=== PATIENT | female | born 1980 | race Caucasian/White ===

== ENCOUNTER 2019-04-12 09:08 | Inpatient (IN) | payer MEDICARE, MEDICAID, SELFPAY ==
[2019-04-12] VITALS (24 sets, daily range): BP systolic 124–191; BP diastolic 77–116; PULSE 82–106; RESP 16–20; TEMP 36.6–37.2; O2SAT 68–100; BMI 26.4
--- NOTE | 2019-04-12 09:34 | ED_ITS ---
Entered by Divya Toure, acting as scribe for Ten Orona DO Apr 12, 2019 09:08 HPI - Skin/Abscess/Foreign Bdy General: Chief complaint: Skin/Abscess/Foreign Body Stated complaint: RASH Time Seen by Provider: 04/12/19 09:36 Source: patient and family Mode of arrival: ambulatory Limitations: no limitations History of Present Illness: HPI narrative: 38-year-old female presents emergency room with a systemic rash that is painful and burning states she is had it for the last 2 weeks. The only focal area she can think that it emanated from was a sore on the base of her skull just to the right of the midline where she has been picking at things. She denies any recent IV drug use injections or IV placements. She has had a fever at home. She is complaining of burning of her skin on arrival. She denies any vomiting or diarrhea but is nauseous. Denies dysuria urgency or frequency cough or shortness of breath MD complaint: rash Onset (ago): week(s) (1 week ago) Location: generalized Severity: severe Quality: burning and constant Pain Consistency: constant Relieving factors: none Exacerbating factors: none Associated symptoms: Reports chills and itching; Deny vomiting Treatments prior to arrival: none Review of Systems Const: Reports: chills Eyes: Denies: change in vision or blurry vision ENMT: Denies: throat pain, oral sores/lesions, dental pain, nasal discharge or nasal congestion Card: Denies: chest pain, palpitations, irregular heart rhythm, edema, syncope, shortness of breath on exertion, shortness of breath when lying down or leg pain with exertion Resp: Denies: shortness of breath, productive cough, non-productive cough or wheezing GI: Denies: vomiting, vomiting blood, coffee grounds in vomit, difficulty swallowing, heartburn/indigestion, diarrhea, constipation, cramping, blood in stool or black tarry stool : Denies: flank pain, painful urination, urinary frequency, urinary urgency, urinary incontinence or blood in urine Musc: Denies: neck pain, back pain, extremity pain, extremity swelling, joint pain or joint swelling Skin/Breast: Reports: rash, itching, redness, skin pain, skin tenderness, breast pain and breast skin changes Neuro: Denies: headache, numbness in extremities, weakness in extremities, changes in sensation, lack of coordination, difficulty walking, frequent falls, dizziness, vertigo or confusion Psych: Denies: anxiety, depression, loss of interest, visual hallucinations, auditory hallucinations, suicidal ideation or homicidal ideation Endo: Denies: excessive urination, excessive thirst, tired all the time or cold intolerance Juan M/Lymph: Denies: easy bruising, easy bleeding, petechiae or enlarged lymph nodes PFSH ED PFSH: Statuses (acute, chronic, etc) shown below reflect problem list status as previously entered and may not be historically accurate Medical History (Updated 04/13/19 @ 16:02 by Ten Orona DO) Hypothyroid (Acute) Social History Smoking and tobacco status: current every day smoker Physical Exam Const: COMMON NORMALS: average body habitus, oriented x3 and alert GENERAL APPEARANCE: cooperative, comfortable, well kempt and well developed NUTRITIONAL APPEARANCE: obese ORIENTATION/CONSCIOUSNESS: Yes awake, Yes oriented to person and Yes oriented to place HENMT: COMMON NORMALS: normocephalic, head/scalp atraumatic, EAC's normal, TM's normal bilaterally, external nose normal, moist oral mucous membranes and oropharynx normal HEAD & SCALP: normocephalic and atraumatic NOSE: external nose normal EXTERNAL AUDITORY CANAL: EAC's normal TYMPANIC MEMBRANE: TM's normal bilaterally MOUTH: oral and palatal mucosa normal, lip normal and tongue normal THROAT: posterior oropharynx normal and tonsils normal Eye: COMMON NORMALS: PERRL, EOMs intact bilaterally, conjunctivae normal and no scleral icterus CONJUNCTIVA: Yes conjunctivae normal PUPIL: Yes PERRL Neck/C-Spine: COMMON NORMALS: full ROM, no lymphadenopathy, supple, no meningeal signs and thyroid normal THYROID: thyroid normal and asymmetrical Lymph: LYMPHATIC: no lymphadenopathy noted Resp: COMMON NORMALS: normal respiratory effort, no retractions, no use of accessory muscles and clear to auscultation bilaterally AUSCULTATION: clear to auscultation bilaterally Cardio: COMMON NORMALS: regular rate and regular rhythm RATE: regular rate RHYTHM: regular rhythm HEART SOUNDS: no murmurs GI: COMMON NORMALS: normal to inspection, nondistended, normoactive bowel sounds, soft to palpation and no hepatosplenomegaly PALPATION: Yes soft and Yes no hepatosplenomegaly : COMMON NORMALS: Yes no CVA tenderness BLADDER/KIDNEY EXAM: Yes no CVA tenderness Back/Pelvis: COMMON NORMALS: no CVA tenderness LUMBAR SPINE/LOWER BACK: Yes normal to inspection Extremity: COMMON NORMALS: no clubbing, cyanosis or edema, no calf tenderness and no pedal edema Neuro: COMMON NORMALS: oriented x3 SENSORIUM/ORIENTATION: Yes alert, Yes oriented to person and Yes oriented to place MENINGEAL SIGNS: Yes no meningeal signs Psych: APPEARANCE: Yes well kempt Skin: GENERAL SKIN EXAM: erythema RASHES: rashes noted (redness and tenderness to entire body ) OTHER: Scattered at the base of the scalp approximately half to three-quarter inch irregular round shaped no abscess. No other identifiable abscess and back axilla groin or buttocks. Rash seems to be concentrated on the trunk but is present in all the extremities and face as well. Course ED course: [address] Ornelas he will admit the patient to observation for cellulitis continue IV antibiotics and antihistamines. Vital Signs: Vital signs: Vital Signs Temperature 98.6 F 04/13/19 12:52 Pulse Rate 67 04/13/19 12:52 Respiratory Rate 20 H 04/13/19 12:52 Blood Pressure 156/90 04/13/19 12:52 Pulse Oximetry 97 04/13/19 12:52 MDM - Skin/Abscess/Foreign Bdy Lab Data: Labs: Lab Results 04/12/19 04/12/19 04/12/19 Range/Units 01:45 10:00 10:00 WBC (4.0-10.0) 10^3/ uL RBC (4.1-5.3) 10^6/u L Hgb (11.5-15.3) g/dL Hct (37.0-47.0) % MCV (81-99) fL MCH (28.0-34.0) pg MCHC (30.0-36.0) g/dL RDW (12.1-15.1) % Plt Count (130-400) 10^3/c mm MPV (7.4-10.4) fL Neut % (Auto) % Lymph % (Auto) % Orange % (Auto) % Eos % (Auto) % Baso % (Auto) % Neut # (Auto) (1.8-7.7) 10^3/u L Lymph # (Auto) (0.8-4.8) 10^3/u L Orange # (Auto) (0.2-0.9) 10^3/u L Eos # (Auto) (0.0-0.8) 10^3/u L Baso # (Auto) (0.0-0.1) 10^3/u L Nucleated RBC % (a uto) % Nucleated RBCs # /100WBC ESR (0-15) mm/hr PT 12.50 (10.5-13.3) SECO NDS INR 0.91 (0.8-1.2) APTT 35.7 (23.9-36.7) SECO NDS Sodium (136-145) mmol/L Potassium (3.5-5.1) mmol/L Chloride (98-107) mmol/L Carbon Dioxide (22-29) mmol/L Anion Gap (5-19) BUN (6-20) mg/dL Creatinine (0.5-0.9) mg/dL GFR Calculation (90-130) mL/min Glucose (74-109) mg/dL Lactate 2.3 H (0.5-2.2) mmol/L Calcium (8.6-10.0) mg/Dl Total Bilirubin (0.15-1.2) mg/dL AST (0-32) U/L ALT (0-33) U/L Alkaline Phosphata se (35-105) IU/L C-Reactive Protein (0.0-4.9) mg/L Total Protein (6.6-8.7) g/dL Albumin (3.5-5.2) g/dL Globulin (1.3-4.6) g/dL TSH (0.27-4.20) uIU/ mL HCG, Qual (Negative) Urine Color (Yellow) Urine Appearance (CLEAR) Urine pH (5-7) Ur Specific Gravit y (1.005-1.030) Urine Protein (Negative) Urine Glucose (UA) (Normal) Urine Ketones (Negative) Urine Occult Blood (Negative) Urine Nitrate (Negative) Urine Bilirubin (NEGATIVE) Urine Urobilinogen (Negative) mg/dL Ur Leukocyte Britney ase (Negative) Urine Opiates Scre en (Negative) ng/mL Ur Barbiturates Sc reen (Negative) ng/mL Ur Phencyclidine S crn (Negative) ng/mL Ur Amphetamines Sc reen (Negative) ng/mL U Benzodiazepines Scrn (Negative) ng/mL Urine Cocaine Scre en (Negative) ng/mL U Marijuana (THC) Screen (Negative) ng/mL Ethyl Alcohol (0-10) mg/dL RENE-1 Antibody (<1.0 NEG) AI SS-A/Ro IgG Antibo dy (<1.0 NEG) AI SS-B/La IgG Antibo dy (<1.0 NEG) AI Anti-nRNP/Sm IgG A b (<1.0 NEG) AI Scl-70 Scleroderma Ab (<1.0 NEG) AI Anti-ds DNA IgG Ab IU/mL RPR Nonreactive (Nonreactive) 04/12/19 04/12/19 04/12/19 Range/Units 10:06 10:06 10:06 WBC 11.5 H (4.0-10.0) 10^3/ uL RBC 4.85 (4.1-5.3) 10^6/u L Hgb 15.4 H (11.5-15.3) g/dL Hct 48.2 H (37.0-47.0) % MCV 99.4 H (81-99) fL MCH 31.8 (28.0-34.0) pg MCHC 32.0 (30.0-36.0) g/dL RDW 14.0 (12.1-15.1) % Plt Count 387 (130-400) 10^3/c mm MPV 10.8 H (7.4-10.4) fL Neut % (Auto) 71.2 % Lymph % (Auto) 19.8 % Orange % (Auto) 5.1 % Eos % (Auto) 3.2 % Baso % (Auto) 0.3 % Neut # (Auto) 8.2 H (1.8-7.7) 10^3/u L Lymph # (Auto) 2.3 (0.8-4.8) 10^3/u L Orange # (Auto) 0.6 (0.2-0.9) 10^3/u L Eos # (Auto) 0.4 (0.0-0.8) 10^3/u L Baso # (Auto) 0.0 (0.0-0.1) 10^3/u L Nucleated RBC % (a uto) 0 % Nucleated RBCs # 0.0 /100WBC ESR (0-15) mm/hr PT (10.5-13.3) SECO NDS INR (0.8-1.2) APTT (23.9-36.7) SECO NDS Sodium 139 (136-145) mmol/L Potassium 3.8 (3.5-5.1) mmol/L Chloride 104 (98-107) mmol/L Carbon Dioxide 24 (22-29) mmol/L Anion Gap 14.8 (5-19) BUN 12 (6-20) mg/dL Creatinine 0.6 (0.5-0.9) mg/dL GFR Calculation 112.5 (90-130) mL/min Glucose 88 (74-109) mg/dL Lactate (0.5-2.2) mmol/L Calcium 9.6 (8.6-10.0) mg/Dl Total Bilirubin 0.2 (0.15-1.2) mg/dL AST 14 (0-32) U/L ALT 21 (0-33) U/L Alkaline Phosphata se 99 (35-105) IU/L C-Reactive Protein 2.0 (0.0-4.9) mg/L Total Protein 7.4 (6.6-8.7) g/dL Albumin 4.6 (3.5-5.2) g/dL Globulin 2.8 (1.3-4.6) g/dL TSH 1.10 (0.27-4.20) uIU/ mL HCG, Qual (Negative) Urine Color (Yellow) Urine Appearance (CLEAR) Urine pH (5-7) Ur Specific Gravit y (1.005-1.030) Urine Protein (Negative) Urine Glucose (UA) (Normal) Urine Ketones (Negative) Urine Occult Blood (Negative) Urine Nitrate (Negative) Urine Bilirubin (NEGATIVE) Urine Urobilinogen (Negative) mg/dL Ur Leukocyte Britney ase (Negative) Urine Opiates Scre en (Negative) ng/mL Ur Barbiturates Sc reen (Negative) ng/mL Ur Phencyclidine S crn (Negative) ng/mL Ur Amphetamines Sc reen (Negative) ng/mL U Benzodiazepines Scrn (Negative) ng/mL Urine Cocaine Scre en (Negative) ng/mL U Marijuana (THC) Screen (Negative) ng/mL Ethyl Alcohol < 10 (0-10) mg/dL RENE-1 Antibody (<1.0 NEG) AI SS-A/Ro IgG Antibo dy (<1.0 NEG) AI SS-B/La IgG Antibo dy (<1.0 NEG) AI Anti-nRNP/Sm IgG A b (<1.0 NEG) AI Scl-70 Scleroderma Ab (<1.0 NEG) AI Anti-ds DNA IgG Ab IU/mL RPR (Nonreactive) 04/12/19 04/12/19 04/12/19 Range/Units 10:06 10:06 11:02 WBC (4.0-10.0) 10^3/ uL RBC (4.1-5.3) 10^6/u L Hgb (11.5-15.3) g/dL Hct (37.0-47.0) % MCV (81-99) fL MCH (28.0-34.0) pg MCHC (30.0-36.0) g/dL RDW (12.1-15.1) % Plt Count (130-400) 10^3/c mm MPV (7.4-10.4) fL Neut % (Auto) % Lymph % (Auto) % Orange % (Auto) % Eos % (Auto) % Baso % (Auto) % Neut # (Auto) (1.8-7.7) 10^3/u L Lymph # (Auto) (0.8-4.8) 10^3/u L Orange # (Auto) (0.2-0.9) 10^3/u L Eos # (Auto) (0.0-0.8) 10^3/u L Baso # (Auto) (0.0-0.1) 10^3/u L Nucleated RBC % (a uto) % Nucleated RBCs # /100WBC ESR 15 (0-15) mm/hr PT (10.5-13.3) SECO NDS INR (0.8-1.2) APTT (23.9-36.7) SECO NDS Sodium (136-145) mmol/L Potassium (3.5-5.1) mmol/L Chloride (98-107) mmol/L Carbon Dioxide (22-29) mmol/L Anion Gap (5-19) BUN (6-20) mg/dL Creatinine (0.5-0.9) mg/dL GFR Calculation (90-130) mL/min Glucose (74-109) mg/dL Lactate (0.5-2.2) mmol/L Calcium (8.6-10.0) mg/Dl Total Bilirubin (0.15-1.2) mg/dL AST (0-32) U/L ALT (0-33) U/L Alkaline Phosphata se (35-105) IU/L C-Reactive Protein (0.0-4.9) mg/L Total Protein (6.6-8.7) g/dL Albumin (3.5-5.2) g/dL Globulin (1.3-4.6) g/dL TSH (0.27-4.20) uIU/ mL HCG, Qual Negative (Negative) Urine Color (Yellow) Urine Appearance (CLEAR) Urine pH (5-7) Ur Specific Gravit y (1.005-1.030) Urine Protein (Negative) Urine Glucose (UA) (Normal) Urine Ketones (Negative) Urine Occult Blood (Negative) Urine Nitrate (Negative) Urine Bilirubin (NEGATIVE) Urine Urobilinogen (Negative) mg/dL Ur Leukocyte Britney ase (Negative) Urine Opiates Scre en (Negative) ng/mL Ur Barbiturates Sc reen (Negative) ng/mL Ur Phencyclidine S crn (Negative) ng/mL Ur Amphetamines Sc reen (Negative) ng/mL U Benzodiazepines Scrn (Negative) ng/mL Urine Cocaine Scre en (Negative) ng/mL U Marijuana (THC) Screen (Negative) ng/mL Ethyl Alcohol (0-10) mg/dL RENE-1 Antibody <1.0 neg (<1.0 NEG) AI SS-A/Ro IgG Antibo dy <1.0 neg (<1.0 NEG) AI SS-B/La IgG Antibo dy <1.0 neg (<1.0 NEG) AI Anti-nRNP/Sm IgG A b <1.0 neg (<1.0 NEG) AI Scl-70 Scleroderma Ab <1.0 neg (<1.0 NEG) AI Anti-ds DNA IgG Ab 3 IU/mL RPR (Nonreactive) 04/12/19 04/12/19 Range/Units 11:02 11:02 WBC (4.0-10.0) 10^3/ uL RBC (4.1-5.3) 10^6/u L Hgb (11.5-15.3) g/dL Hct (37.0-47.0) % MCV (81-99) fL MCH (28.0-34.0) pg MCHC (30.0-36.0) g/dL RDW (12.1-15.1) % Plt Count (130-400) 10^3/c mm MPV (7.4-10.4) fL Neut % (Auto) % Lymph % (Auto) % Orange % (Auto) % Eos % (Auto) % Baso % (Auto) % Neut # (Auto) (1.8-7.7) 10^3/u L Lymph # (Auto) (0.8-4.8) 10^3/u L Orange # (Auto) (0.2-0.9) 10^3/u L Eos # (Auto) (0.0-0.8) 10^3/u L Baso # (Auto) (0.0-0.1) 10^3/u L Nucleated RBC % (a uto) % Nucleated RBCs # /100WBC ESR (0-15) mm/hr PT (10.5-13.3) SECO NDS INR (0.8-1.2) APTT (23.9-36.7) SECO NDS Sodium (136-145) mmol/L Potassium (3.5-5.1) mmol/L Chloride (98-107) mmol/L Carbon Dioxide (22-29) mmol/L Anion Gap (5-19) BUN (6-20) mg/dL Creatinine (0.5-0.9) mg/dL GFR Calculation (90-130) mL/min Glucose (74-109) mg/dL Lactate (0.5-2.2) mmol/L Calcium (8.6-10.0) mg/Dl Total Bilirubin (0.15-1.2) mg/dL AST (0-32) U/L ALT (0-33) U/L Alkaline Phosphata se (35-105) IU/L C-Reactive Protein (0.0-4.9) mg/L Total Protein (6.6-8.7) g/dL Albumin (3.5-5.2) g/dL Globulin (1.3-4.6) g/dL TSH (0.27-4.20) uIU/ mL HCG, Qual (Negative) Urine Color Straw (Yellow) Urine Appearance Clear (CLEAR) Urine pH 5.0 (5-7) Ur Specific Gravit y 1.010 (1.005-1.030) Urine Protein Neg (Negative) Urine Glucose (UA) Norm (Normal) Urine Ketones Negative (Negative) Urine Occult Blood Neg (Negative) Urine Nitrate Negative (Negative) Urine Bilirubin Neg (NEGATIVE) Urine Urobilinogen Norm (Negative) mg/dL Ur Leukocyte Britney ase Negative (Negative) Urine Opiates Scre en Positve (Negative) ng/mL Ur Barbiturates Sc reen Negative (Negative) ng/mL Ur Phencyclidine S crn Negative (Negative) ng/mL Ur Amphetamines Sc reen Positive H (Negative) ng/mL U Benzodiazepines Scrn Negative (Negative) ng/mL Urine Cocaine Scre en Negative (Negative) ng/mL U Marijuana (THC) Screen Positive H (Negative) ng/mL Ethyl Alcohol (0-10) mg/dL RENE-1 Antibody (<1.0 NEG) AI SS-A/Ro IgG Antibo dy (<1.0 NEG) AI SS-B/La IgG Antibo dy (<1.0 NEG) AI Anti-nRNP/Sm IgG A b (<1.0 NEG) AI Scl-70 Scleroderma Ab (<1.0 NEG) AI Anti-ds DNA IgG Ab IU/mL RPR (Nonreactive) Imaging Data^: CXR: Radiologist's impression: [address] [address] XRay Report Signed Patient: Perla Argueta #: [id number] : 1980Acct#:[id number] Age/Sex: 38 / FADM Date: 04/12/19 Loc: ERRoom/Bed: Attending Dr: Ordering Provider/Ordering MD: Ten Orona DO Date of Service: 04/12/19 Procedure(s): XR chest 1V portable [id number] Accession Number(s): [id number] Report Number: [id number] WS: [id number] PORTABLE CHEST HISTORY: fever, dyspnea COMPARISON: 10/02/2018 Lungs are clear and well expanded. No pleural effusion or pneumothorax. Cardiac size: Normal. Mediastinum/Aorta: Normal mediastinum. No osseous abnormality seen. XR/XR chest 1V portable [id number] IMPRESSION: Unremarkable portable chest. Dictated By:Delilah Patricio DO Signed By:Delilah Patricio DOSigned Date/Time:04/12/19 1024 DD/ 1024 Discharge Plan Discharge Patient Disposition: Admitted As Inpatient Admit Provider: Hemal Rocha Clinical Impression: Cellulitis, Hypothyroid, Eczema Condition: Stable Discharge Orders: Discharge Order (Routine); Ordered 04/13/19 Ordered By: Hemal Rocha Discharge Diet: Regular Discharge Activity: Resume usual activity Interventions: ED Discharge Assessment Last Done: 04/12/19 12:56 Discharge Date/Time: 04/12/19 13:33 Coding Level of Care Code ED Resource Center Teacher for Chg Fwd Exam Problem Focused The documentation recorded by the Mesfin cazares Bridget Annette, accurately reflects the service I personally performed and the decisions made by Adwoa english Curtis L, DO Apr 12, 2019 09:08
--- NOTE | 2019-04-12 09:40 | XR_ITS ---
WS: [id number] PORTABLE CHEST HISTORY: fever, dyspnea COMPARISON: 10/02/2018 Lungs are clear and well expanded. No pleural effusion or pneumothorax. Cardiac size: Normal. Mediastinum/Aorta: Normal mediastinum. No osseous abnormality seen. XR/XR chest 1V portable [id number] IMPRESSION: Unremarkable portable chest.
[2019-04-12 10:15] LABS: Basophils % 0.3 %; Eosinophils # 0.4 10^3/uL (0.0-0.8); Eosinophils % 3.2 %; Hematocrit 48.2 % (37.0-47.0); Hemoglobin 15.4 g/dL (11.5-15.3); Lymphocytes # 2.3 10^3/uL (0.8-4.8); Lymphocytes % 19.8 %; Mean Corpuscular Hemoglobin 31.8 pg (28.0-34.0); Mean Corpuscular Volume 99.4 fL (81-99); Mean Platelet Volume 10.8 fL (7.4-10.4); Monocytes # 0.6 10^3/uL (0.2-0.9); Monocytes % 5.1 %; Neutrophils # 8.2 10^3/uL (1.8-7.7); Neutrophils % 71.2 %; Nucleated Red Blood Cells % 0 %; Platelet Count 387 10^3/cmm (130-400); Red Blood Count 4.85 10^6/uL (4.1-5.3); White Blood Count 11.5 10^3/uL (4.0-10.0)
--- NOTE | 2019-04-12 10:15 | PC.NURSE ---
Xray performed at bedside
[2019-04-12 10:25] LABS: INR 0.91 (0.8-1.2); Lactate (Lactic Acid level) 2.3 mmol/L (0.5-2.2)
[2019-04-12 10:26] LABS: Partial Thromboplastin Time 35.7 SECONDS (23.9-36.7)
[2019-04-12] MEDS: morphine 4 mg/mL SDV 1 mL IVP (10:29)
[2019-04-12] MEDS: ondansetron 2 mg/ML SDV 2 mL 4 MG IVP (10:29)
[2019-04-12] MEDS: sodium chloride 0.9% 1,000 ML 999 ML IV (10:29)
[2019-04-12] MEDS: vancomycin 1,000 MG in sodium chloride 0.9% 250 ML 250 MG IV (10:34)
[2019-04-12] MEDS: diphenhydrAMINE 50 mg/mL SDV 1mL IVP (10:35)
[2019-04-12 10:36] LABS: Alanine Aminotransferase 21 U/L (0-33); Albumin Level 4.6 g/dL (3.5-5.2); Alkaline Phosphatase 99 IU/L (35-105); Anion Gap 14.8 (5-19); Aspartate Amino Transferase 14 U/L (0-32); Blood Urea Nitrogen 12 mg/dL (6-20); Calcium 9.6 mg/Dl (8.6-10.0); Carbon Dioxide 24 mmol/L (22-29); Chloride 104 mmol/L (98-107); Globulin 2.8 g/dL (1.3-4.6); Glomerular Filtration Rate 112.5 mL/min (90-130); Glucose 88 mg/dL (74-109); Potassium 3.8 mmol/L (3.5-5.1); Sodium 139 mmol/L (136-145); Total Bilirubin 0.2 mg/dL (0.15-1.2); Total Protein 7.4 g/dL (6.6-8.7)
[2019-04-12 11:13] LABS: HCG Qualitative Urine. Negative (Negative)
[2019-04-12 11:14] LABS: Add Urine Microscopic? NO
[2019-04-12 11:18] LABS: Bilirubin Urine Neg (NEGATIVE); Blood Urine Neg (Negative); Glucose Urine UA Norm (Normal); Ketones Urine Negative (Negative); Leukocyte Esterase Urine Negative (Negative); Nitrate Urine Negative (Negative); Protein Urine Neg (Negative); Urine Appearance Clear (CLEAR); Urine Color Straw (Yellow); Urobilinogen Urine Norm (Negative)
[2019-04-12] MEDS: LORazepam 2 mg/mL INJ 1 mL 1 MG IVP ×2 (11:26→18:16)
[2019-04-12 13:40] LABS: Barbiturates Screen Urine Negative (Negative); Benzodiazepines Screen Urine Negative (Negative); Cocaine Screen Urine Negative (Negative); PCP Screen Urine Negative (Negative); THC Screen Urine Positive (Negative)
[2019-04-12 13:53] LABS: Amphetamines Screen Urine Positive (Negative)
[2019-04-12] MEDS: morphine 4 mg/mL SDV 1 mL 1 MG IVP ×3 (14:00→23:26)
[2019-04-12] MEDS: diphenhydrAMINE 50 mg/mL SDV 1mL 12.5 MG IVP ×2 (14:00→18:17)
[2019-04-12] MEDS: D5-NS 0.45% + KCL 20 mEq 20 MEQ/1,000 ML BAG 125 MEQ IV ×2 (14:02→21:40)
[2019-04-12 14:23] LABS: Alcohol Level < 10 mg/dL (0-10)
[2019-04-12 14:39] LABS: Erythrocyte Sedimentation Rate 15 mm/hr (0-15)
[2019-04-12] MEDS: ipratropium-albuterol 3 mL Neb INHALATION ×2 (15:12→20:51)
--- NOTE | 2019-04-12 15:55 | P.HP_ITS ---
Providers/Chief Complaint Admitting Physician: Hemal Rocha MD Primary Care Provider: Alejandro Elam Chief Complaint: RASH History of Present Illness Perla Argueta is a 38 year old female with past medical history of recurrent rashes, hypertension, hypothyroidism presents to ER today complaining of generalized body rash. Patient states the rash started in both her of her arms almost a week ago and has been spreading rapidly to the present state. At present patient has rash all over her torso, both limbs, chest, neck with face involvement as well. Patient complains of extreme itching along with burning and mild pain as well. Patient states she has been using Benadryl orally for the rash but has not helped. 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 She states she has had similar rash on her breast around 6 months ago along with nipular discharge for which she has been worked up as an outpatient to rule out Paget's disease. At present patient denies of having any open wounds, any discharge from the rash except from the left nipple which has been similar in the past. Patient denies of having any recent travels, sick contacts, using any new detergent, using any new medication, being on any antibiotics recently, nausea, vomiting, flu or fever-like symptoms, dysuria, diarrhea but does complain of generalized body and joint pains. Patient denies of having any dysuria or bleeding in the urine. She denies of having any wheeze, difficulty in breathing, choking sensation, swelling in her legs. Review of Systems Const: Reports: malaise; Denies: fever, chills, body aches, change in appetite, night sweats, diaphoresis, change in sleep pattern, daytime sleepiness or snoring Eyes: Denies: change in vision, blurry vision, photophobia, eye discomfort or eye discharge ENMT: Denies: throat pain, enlarged tonsils, hoarseness, mouth pain, oral sores/lesions, dry mouth, tinnitus, nasal congestion or post nasal drip Card: Denies: chest pain, palpitations, irregular heart rhythm, edema, swelling of feet/ankles, lightheadedness, syncope, pre-syncope, shortness of breath on exertion, shortness of breath when lying down, leg pain with exertion or bluish discoloration of hands/feet Resp: Denies: shortness of breath, productive cough, non-productive cough, wheezing, stridor, pain on inspiration, change in phlegm color, coughing up blood or chest congestion GI: Denies: abdominal pain, nausea, vomiting, vomiting blood, coffee grounds in vomit, difficulty swallowing, heartburn/indigestion, diarrhea, constipation, bloating, cramping, change in bowel habits, painful bowel movements, blood in stool or black tarry stool : Denies: flank pain, painful urination, urinary frequency, urinary urgency, urinary hesitancy, nighttime urination or blood in urine Musc: Denies: neck pain, back pain, extremity pain, joint pain, joint swelling, redness, joint stiffness or limited range of motion Skin/Breast: Reports: rash, itching, redness, skin pain, skin tenderness, changes in skin color, stretch padilla and nipple discharge; Denies: sensitivity to light, breast mass/lump, breast skin changes or change in breast shape Neuro: Denies: headache, numbness in extremities, weakness in extremities, changes in sensation, lack of coordination, difficulty walking, frequent falls, dizziness, vertigo, confusion, slurred speech, difficulty communicating thoughts or seizure-like activity Psych: Denies: anxiety, depression, mood swings, panic attacks, hopelessness or irritability Endo: Denies: excessive urination, excessive thirst, tired all the time, cold intolerance, excessive sweating, flushing or heat intolerance Juan M/Lymph: Denies: easy bruising or easy bleeding All/Imm: Denies: tongue swelling, facial swelling or acute wheezing Medications/Allergies Home Medications Medication Instructions Recorded Confirmed Last Taken Type Probiotic 3 cap PO DAILY 04/12/19 04/12/19 04/11/19 History diphenhydramine HCl [Benadryl] 25 mg PO TID PRN 04/12/19 04/12/19 04/12/19 History ibuprofen 400 mg PO Q4H PRN 04/12/19 04/12/19 04/12/19 History levothyroxine 50 mcg PO DAILY 04/12/19 04/12/19 Unknown History losartan 100 mg PO DAILY 04/12/19 04/12/19 Unknown History Allergies Allergy/AdvReac Type Severity Reaction Status Date / Time codeine Allergy ADR-Headach Verified 01/23/20 09:17 e PFSH Acute PFSH: Statuses (acute, chronic, etc) shown below reflect problem list status as previously entered and may not be historically accurate Medical History (Updated 04/12/19 @ 16:01 by Hemal Rocha MD) Hypothyroid (Acute) Social History Smoking and tobacco status: current every day smoker Vitals/I&O/Wt Last Vital Signs Temp 98.7 F 04/12/19 13:39 Pulse 100 04/12/19 15:14 Resp 18 04/12/19 15:14 BP 164/113 04/12/19 13:39 Pulse Ox 97 04/12/19 15:14 04/12/19 04/12/19 04/12/19 06:59 14:59 22:59 Intake Total 1250 / 1250 Balance 1250 / 1250 Weight last 48 hrs Weight 86.183 kg Physical Exam Narrative: EXAM NARRATIVE: General: No acute distress, AO x3 HEENT: PERRLA, pupils bilaterally equal and reactive Chest: Normal vesicular breath sounds, no added sounds, equal good air entry bilaterally CVS: S1-S2 regular, no murmurs, no tachycardia, no gallops, no rubs Abdomen: Soft, nontender, no organomegaly, bowel sounds present Neuro: No focal deficits, no facial deformity, AO x3, power 5/5 in all limbs Skin: RASHES: rashes noted (Generalized, red, angry looking rash present on both her upper limbs, chest, abdomen without any pustules or papillary lesion. No ulcers present on any of the rash except from the left breast. Mild scaling present on the right arm.) WOUNDS: No wounds noted Data : 04/12/19 10:06 04/12/19 10:06 Micro: Microbiology 04/12/19 10:06 Blood Culture - Preliminary Blood SPECIMEN COLLECTED 04/12/19 10:00 Blood Culture - Preliminary Blood SPECIMEN COLLECTED A&P Assessment and plan (1) Skin rash: Status: Acute Code(s): R21 - Rash and other nonspecific skin eruption (2) Hypothyroid: Status: Acute Code(s): E03.9 - Hypothyroidism, unspecified Additional A&P Information Generalized rash: Unknown etiology. Cellulitis unlikely given the generalized spread all over the body. We will hold off on vancomycin for now. Could be secondary to flea or bug bite exposure or exposure to the spray from the motel. Check ESR, CRP, tick panel, [facility] ALEXIA panel. Given the joint pains will also rule out gonorrhea and chlamydia infections along with secondary syphilis with RPR. We will try to arrange for a skin biopsy. We will start patient on doxycycline for possible tick exposure. We will start patient on Benadryl IV 12.5 every 6 hourly as needed along with Ativan 0.5 mg q. 8 hourly as needed. Restart patient's her DuoNeb's every 6 hourly and budesonide twice daily. Respiratory to assess and treat. After skin biopsy at the rash continues to remain like this can add on steroids with Solu-Medrol 40 mg every 6 hourly. Hypothyroidism: Check TSH. Continue home dose of levothyroxine. Full code Regular diet But was score low so we will hold off on any pharmacological DVT prophylaxis right now. Cannot do mechanical prophylaxis in view of painful rash. Attestations Medical Necessity Statement*: Most likely admission for less than 48 hours. Patient needs admission for generalized rash. Time Spent in Patient Care: 16 - 35 minutes Coding Level of Care Code Acute Counter Sales Representative for Chg Fwd Diagnoses Skin rash R21 Hypothyroid E03.9
[2019-04-12] MEDS: doxycycline 100 mg Tablet PO (16:54)
[2019-04-13 02:10] LABS: Basophils % 0.1 %; Eosinophils % 0.1 %; Hematocrit 43.5 % (37.0-47.0); Hemoglobin 13.5 g/dL (11.5-15.3); Lymphocytes # 0.6 10^3/uL (0.8-4.8); Lymphocytes % 5.1 %; Mean Corpuscular Volume 96.7 fL (81-99); Mean Platelet Volume 11.3 fL (7.4-10.4); Monocytes # 0.1 10^3/uL (0.2-0.9); Monocytes % 0.5 %; Neutrophils % 93.9 %; Nucleated Red Blood Cells % 0 %; Platelet Count 317 10^3/cmm (130-400); White Blood Count 11.7 10^3/uL (4.0-10.0)
[2019-04-13 02:17] LABS: Alanine Aminotransferase 19 U/L (0-33); Albumin Level 3.8 g/dL (3.5-5.2); Alkaline Phosphatase 76 IU/L (35-105); Anion Gap 15.6 (5-19); Blood Urea Nitrogen 9 mg/dL (6-20); Calcium 9.1 mg/dL (8.5-10.5); Carbon Dioxide 19 mmol/L (22-29); Chloride 102 mmol/L (98-107); Globulin 2.3 g/dL (1.3-4.6); Glomerular Filtration Rate 112.5 mL/min (90-130); Glucose 179 mg/dL (74-109); Potassium 4.6 mmol/L (3.5-5.1); Sodium 132 mmol/L (136-145); Total Bilirubin 0.2 mg/dL (0.15-1.2); Total Protein 6.1 g/dL (6.6-8.7)
[2019-04-13 02:22] LABS: Aspartate Amino Transferase 15 U/L (0-32)
[2019-04-13 02:23] LABS: Slide Review Slide Review Perform
[2019-04-13 04:00] VITALS: BP 124/69; PULSE 89; RESP 19; TEMP 36.3; O2SAT 97
[2019-04-13 04:38] LABS: Rapid Plasma Reagin Syphilis Nonreactive (Nonreactive)
[2019-04-13] MEDS: D5-NS 0.45% + KCL 20 mEq 20 MEQ/1,000 ML BAG 125 MEQ IV (05:23)
[2019-04-13 07:49] VITALS: BP 145/76; PULSE 98; RESP 20; TEMP 36.6; O2SAT 98
[2019-04-13] MEDS: doxycycline 100 mg Tablet PO (08:48)
[2019-04-13] MEDS: levothyroxine 50 mcg Tablet PO (08:48)
[2019-04-13 09:17] VITALS: PULSE 114; RESP 18; O2SAT 100
[2019-04-13 09:21] VITALS: RESP 22
[2019-04-13] MEDS: morphine 4 mg/mL SDV 1 mL 1 MG IVP (09:21)
[2019-04-13 11:06] LABS: Anti-Double Strand DNA AB 3 IU/mL; Jo-1 Antibody <1.0 NEG AI (<1.0 NEG); SM/RNP Antibodies <1.0 NEG AI (<1.0 NEG); SS-B/LA IGG <1.0 NEG AI (<1.0 NEG); Scleroderma Ab(Scl-70) Ab <1.0 NEG AI (<1.0 NEG); Ss-A/Ro Igg <1.0 NEG AI (<1.0 NEG)
[2019-04-13 12:00] VITALS: BP 156/90; PULSE 67; RESP 20; TEMP 37; O2SAT 97
--- NOTE | 2019-04-13 12:03 | PM.DCS ---
Discharge Providers Date of Admission: 04/12/19 12:17 Date of Discharge: 04/13/19 Attending Provider at Admission: Hemal Rocha MD Attending Provider at Discharge: Hemal Rocha MD Primary Care Provider: Alejandro Elam Diagnoses at Discharge Discharge Diagnosis (1) Skin rash: Status: Acute (2) Hypothyroid: Status: Acute Reason for Visit Reason for Visit: Reason For Visit: RASH Hospital Course Discharge Summary: Perla Argueta is a 38 year old female with past medical history of recurrent rashes, hypertension, hypothyroidism presented to the ER on March 23 complaining of generalized body rash. Patient states the rash started in both her of her arms almost a week ago and has been spreading rapidly to the present state. At present patient has rash all over her torso, both limbs, chest, neck with face involvement as well. Patient complains of extreme itching along with burning and mild pain as well. 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 Patient has had similar rash in the past. As rash etiology was not clear so we will follow-up blood work was done. Patient's ALEXIA profile is negative with a normal ESR and CRP. Patient's U tox was positive for opiates, meth, marijuana. Patient's HIV and Chlamydia gonorrhea could not be done as patient refused. Given the exposure to possible bedbugs and fleas patient was started on doxycycline and IV steroids along with Benadryl for itching. Patient responded well to the treatment and rash started to improve. Patient is being discharged on oral doxycycline for 1 week and steroids for 1 week as well to follow-up with neurosurgery spine physician for skin biopsy for further evaluation. Patient was advised and counseled regarding amphetamines abuse to which patient stated she does not do the drugs and is possible that 1 of her friends is slipping the the drugs to her. Patient denies of having suicidal or homicidal ideation and stated that she feels safe at her home and is not physically or mentally abused. Physical Exam Narrative: EXAM NARRATIVE: General: No acute distress, AO x3 HEENT: PERRLA, pupils bilaterally equal and reactive Chest: Normal vesicular breath sounds, no added sounds, equal good air entry bilaterally CVS: S1-S2 regular, no murmurs, no tachycardia, no gallops, no rubs Abdomen: Soft, nontender, no organomegaly, bowel sounds present Neuro: No focal deficits, no facial deformity, AO x3, power 5/5 in all limbs Skin: RASHES: rashes noted (Generalized, red, angry looking rash present on both her upper limbs, chest, abdomen without any pustules or papillary lesion. No ulcers present on any of the rash except from the left breast. Mild scaling present on the right arm.) WOUNDS: No wounds noted WOUNDS: No wounds noted Discharge Data Data Completed and Pending: Completed Studies During Hospitalization Category Date Time Status XR chest 1V valentín ble [id number] Urgent Exams 04/12/19 09:40 Completed Pending at discharge Category Date Time Status Blood Culture Sta t Lab 04/12/19 10:06 Results Chlamydia / Gonor idalia Panel Routine Lab 04/12/19 22:33 Uncollected Complete Blood Co unt w/Auto AM LABS Lab 04/14/19 04:00 Ordered Complete Blood Co unt w/Auto AM LABS Lab 04/15/19 04:00 Ordered Comprehensive Met abolic Panel AM LA BS Lab 04/14/19 04:00 Ordered Comprehensive Met abolic Panel AM LA BS Lab 04/15/19 04:00 Ordered Streptococcus Cul ture Group A Routi ne Lab 04/12/19 14:10 Results Tick Panel Routin e Lab 04/12/19 16:14 Received Labs from last 24 hours 04/13/19 04/13/19 04/12/19 01:45 01:45 11:02 WBC 11.7 H RBC 4.50 Hgb 13.5 Hct 43.5 MCV 96.7 MCH 30.0 MCHC 31.0 RDW 14.0 Plt Count 317 MPV 11.3 H Neut % (Auto) 93.9 Lymph % (Auto) 5.1 [place] % (Auto) 0.5 Eos % (Auto) 0.1 Baso % (Auto) 0.1 Neut # (Auto) 11.0 H Lymph # (Auto) 0.6 L [place] # (Auto) 0.1 L Eos # (Auto) 0.0 Baso # (Auto) 0.0 Nucleated RBC % (a uto) 0 Nucleated RBCs # 0.0 ESR Sodium 132 L Potassium 4.6 Chloride 102 Carbon Dioxide 19 L Anion Gap 15.6 BUN 9 Creatinine 0.6 GFR Calculation 112.5 Glucose 179 H Calcium 9.1 Total Bilirubin 0.2 AST 15 ALT 19 Alkaline Phosphata se 76 C-Reactive Protein Total Protein 6.1 L Albumin 3.8 Globulin 2.3 TSH Urine Opiates Scre en Positve Ur Barbiturates Sc reen Negative Ur Phencyclidine S crn Negative Ur Amphetamines Sc reen Positive H U Benzodiazepines Scrn Negative Urine Cocaine Scre en Negative U Marijuana (THC) Screen Positive H Ethyl Alcohol RENE-1 Antibody SS-A/Ro IgG Antibo dy SS-B/La IgG Antibo dy Anti-nRNP/Sm IgG A b Scl-70 Scleroderma Ab Anti-ds DNA IgG Ab RPR 04/12/19 04/12/19 04/12/19 10:06 10:06 10:06 WBC RBC Hgb Hct MCV MCH MCHC RDW Plt Count MPV Neut % (Auto) Lymph % (Auto) [place] % (Auto) Eos % (Auto) Baso % (Auto) Neut # (Auto) Lymph # (Auto) [place] # (Auto) Eos # (Auto) Baso # (Auto) Nucleated RBC % (a uto) Nucleated RBCs # ESR 15 Sodium Potassium Chloride Carbon Dioxide Anion Gap BUN Creatinine GFR Calculation Glucose Calcium Total Bilirubin AST ALT Alkaline Phosphata se C-Reactive Protein 2.0 Total Protein Albumin Globulin TSH 1.10 Urine Opiates Scre en Ur Barbiturates Sc reen Ur Phencyclidine S crn Ur Amphetamines Sc reen U Benzodiazepines Scrn Urine Cocaine Scre en U Marijuana (THC) Screen Ethyl Alcohol < 10 RENE-1 Antibody <1.0 neg SS-A/Ro IgG Antibo dy <1.0 neg SS-B/La IgG Antibo dy <1.0 neg Anti-nRNP/Sm IgG A b <1.0 neg Scl-70 Scleroderma Ab <1.0 neg Anti-ds DNA IgG Ab 3 RPR 04/12/19 01:45 WBC RBC Hgb Hct MCV MCH MCHC RDW Plt Count MPV Neut % (Auto) Lymph % (Auto) [place] % (Auto) Eos % (Auto) Baso % (Auto) Neut # (Auto) Lymph # (Auto) [place] # (Auto) Eos # (Auto) Baso # (Auto) Nucleated RBC % (a uto) Nucleated RBCs # ESR Sodium Potassium Chloride Carbon Dioxide Anion Gap BUN Creatinine GFR Calculation Glucose Calcium Total Bilirubin AST ALT Alkaline Phosphata se C-Reactive Protein Total Protein Albumin Globulin TSH Urine Opiates Scre en Ur Barbiturates Sc reen Ur Phencyclidine S crn Ur Amphetamines Sc reen U Benzodiazepines Scrn Urine Cocaine Scre en U Marijuana (THC) Screen Ethyl Alcohol RENE-1 Antibody SS-A/Ro IgG Antibo dy SS-B/La IgG Antibo dy Anti-nRNP/Sm IgG A b Scl-70 Scleroderma Ab Anti-ds DNA IgG Ab RPR Nonreactive Vitals: Last Vital Signs Temp 97.9 F 04/13/19 07:49 Pulse 114 H 04/13/19 09:17 Resp 22 H 04/13/19 09:21 BP 145/76 04/13/19 07:49 Pulse Ox 100 04/13/19 09:17 Discharge Plan Discharge Patient Disposition: Home, Self-Care Condition: Stable Prescriptions: New doxycycline monohydrate 100 mg Tablet 100 mg PO BID Qty: 14 RF: 0 prednisone 20 mg tablet 20 mg PO DAILY 11 Days Qty: 11 RF: 0 Continued levothyroxine 50 mcg Tablet 50 mcg PO DAILY RF: 0 Benadryl 25 mg Capsule 25 mg PO TID PRN (Reason: Itching) RF: 0 ibuprofen 200 mg Tablet 400 mg PO Q4H PRN (Reason: Pain) RF: 0 Probiotic 3 cap PO DAILY RF: 0 Discontinued losartan 100 mg Tablet 100 mg PO DAILY RF: 0 Discharge Orders: Discharge Order (Routine); Ordered 04/13/19 Ordered By: Hemal Rocha Referrals: Alejandro Elam [Primary Care Provider] - 4-7 days (Please see Dr. Elam's office on TuesdayApr 18 at 2:00) Discharge Diet: Regular Discharge Activity: Resume usual activity Patient Instructions: Doxycycline (By mouth), Prednisone (By mouth) Activity Restrictions/Additional Instructions: Follow-up with your neurosurgery spine physician for skin biopsy in a week. Discharge Date/Time: 04/13/19 13:15 Discharge Attestations Time Spent in Discharge Care*: greater than 30 min Specific Discharge Activities: Specific discharge activities: educating patient and discussing with spring encaser/social workers/dc planners Status at Discharge: Cognitive status at discharge: cognitively intact, Behavioral status at discharge: cooperative, Functional status at discharge: independent ambulation Overall status at discharge: patient is progressing back to baseline Quality Metrics Clinical Quality Measures During this hospital stay, did patient experience: None Coding Level of Care Code Acute Wire Drawing Machine Tender for Chg Fwd Diagnoses Skin rash R21 Hypothyroid E03.9
[2019-04-13 12:52] VITALS: BP 156/90; PULSE 67; RESP 20; TEMP 37; O2SAT 97
--- NOTE | 2019-04-13 13:07 | PC.CHAP ---
Pastoral Care Encounter/Spiritual Assessment Type of Contact [] Declined sorting grapple operator visit [] Patient/Family/Request visit [] Outpatient visit [] Follow-up visit [] Physician referral [] Code/Alert [x] Routine visit [] Staff referral [] Actively dying [] Patient sleeping [] Family support [] [] Out of room [] Palliative care [] [] Receiving care in room [] Pre-surgical visit [] Trauma [] Long length of stay [] ICU visit [] Other: Relational/Emotional Strength [x] Patient feels connected with others/family/visitors/staff [] Distress [] Loneliness/isolation [] Abandonment Spirituality of Patient [] Person of Jyotsna [] Attends Islam of their Jyotsna [] Believes in Prayer [] Reads Bible or Restorationist materials [x] There are Spiritual issues to be addressed Graphic Art Technician Interventions [x] Prayer [x] Active listening [x] Non-anxious presence [x] Spiritual/emotional support [] Crisis/trauma care [] Spiritual counseling [] Bereavement support [] Provided bereavement packet [] Provided Bible/devotional materials [] Provided toy/stuffed animal, coloring book to patient or family member [] Completed spiritual assessment [] Provided Communion [] Anointing/Palisade [] Salvation [] Other: Impact on Illness or Injury [] Angry [] Fearful [] Anxious [] Often cries [] Exhaustion [] Unable to work [] Unable to attend advent [] Unable to walk/stand [] Unable to read [] Unable to drive [] Unable to eat/drink [] Unable to sleep [] Unable to be with family [x] Other: Summary Patient had her boyfriend in the room with her and wanted minimal visit with Jennyfer and allowed prayer. Time spent with patient 2-minutes
== END 2019-04-13 13:15 | disposition home or self-care (01) | DRG 607 ==
LOC: ER 12:57 → MEDSURG 13:01
PROVIDERS: Admitting Provider Student in an Organized Health Care Education/Training Program; Emergency Provider Family Medicine; PCP Family Medicine; Visit Provider Student in an Organized Health Care Education/Training Program
DX: R21 Rash and other nonspecific skin eruption (principal); E03.9 Hypothyroidism, unspecified; L30.9 Dermatitis, unspecified; I10 Essential (primary) hypertension; Z79.890 Hormone replacement therapy; Z79.899 Other long term (current) drug therapy; Z79.1 Long term (current) use of non-steroidal anti-inflammatories (NSAID); F17.200 Nicotine dependence, unspecified, uncomplicated; Z88.5 Allergy status to narcotic agent
CPT/HCPCS: 12345; 36415; 71045; 80053; 80307; 81003; 81025; 83605; 84443; 85025; 85610; 85651; 85730; 86140; 86225; 86235; 86592; 86618; 86666; 86757; 87040; 87081; 94640; 94664; 96365; 96366; 96374; 96375; 99283; A9270; G0378; J1200; J2060; J2270; J2405; J2920; J3370; J7030; J7050

== ENCOUNTER 2019-08-26 18:42 | Emergency (ER) | payer MEDICARE, MEDICAID, SELFPAY ==
[2019-08-26 18:49] VITALS: BP 154/99; PULSE 88; RESP 18; TEMP 36.6; O2SAT 98; BMI 26.4
--- NOTE | 2019-08-26 19:03 | XR_ITS ---
WS: [id number] PORTABLE CHEST HISTORY: cp COMPARISON: 04/12/2019 Lungs are clear and well expanded. No pleural effusion or pneumothorax. Cardiac size: Normal. Mediastinum/Aorta: Normal mediastinum. No osseous abnormality seen. XR/XR chest 1V portable [id number] IMPRESSION: Unremarkable portable chest.
--- NOTE | 2019-08-26 19:03 | ECG_ITS ---
Measurements Intervals [place] Rate: 82 P: 29 IN: 116 QRS: -30 QRSD: 98 T: 79 QT: 384 QTc: 450 SINUS RHYTHM WITH SHORT IN INTERVAL POSSIBLE LEFT ATRIAL ENLARGEMENT [-0.1mV P WAVE IN V1/V2] POSSIBLE ANTERIOR MYOCARDIAL INFARCTION [30 ms Q WAVE IN V3/V4, OR R < 0.2 mV IN V4], OF INDETERMINATE AGE Compared to ECG 10/01/2018 22:41:18 Short IN interval now present Myocardial infarct finding still present Electronically Signed On 08-27-2019 19:27:39 CDT by Aric Maguire M.D. [email or web address]
--- NOTE | 2019-08-26 19:05 | CTR_ITS ---
PROCEDURE INFORMATION: Exam: CT Head Without Contrast Exam date and time: 08/26/2019 7:21 PM Age: 38 years old Clinical indication: Pain; Headache not specified; Patient HX: C/O DAMIAN w nausea TECHNIQUE: Imaging protocol: Computed tomography of the head without contrast. Radiation optimization: All CT scans at this facility use at least one of these dose optimization techniques: automated exposure control; mA and/or kV adjustment per patient size (includes targeted exams where dose is matched to clinical indication); or iterative reconstruction. COMPARISON: CT head wo con* [id number] 06/15/2018 4:11 PM RADIATION DOSE METRICS: Total DLP: 762.43 mGy-cm FINDINGS: The ventricles, sulci and basilar cisterns appear normal for the patient's stated age. There is no evidence of mass, hemorrhage or infarct. No extra-axial fluid collections are identified. There is no midline shift. There is no evidence of fracture. The visualized paranasal sinuses are well-aerated. CT/CT head wo con* [id number] IMPRESSION: No evidence for acute infarct, mass or hemorrhage. Radiation Dose CTDIVOL = (mGy): DLP = 762.43 (mGy-cm)
--- NOTE | 2019-08-26 19:08 | W.ED.CHESTPA ---
HPI - Chest Pain General: Chief Complaint: Chest Pain Stated Complaint: cp, sob,damian Time Seen by Provider: 08/26/19 19:02 Source: patient Mode of arrival: ambulatory Limitations: no limitations History of Present Illness: HPI narrative: 38-year-old female who states she had a headache over the last 2 days. She states she has a long history of migraines and this feels like her typical migraine. She states she does have light sensitivity. She states she is also had some chest pain in her left chest for the last 2 days and slight dyspnea. She denies any worsening or improving factors for her pain or shortness of breath. She denies any fever or cough. Associated symptoms: Deny abdominal pain, dyspnea, fever(s), nausea or vomiting Review of Systems Const: Denies: fever(s), chills, body aches or change in appetite Eyes: Denies: blurry vision or eye discomfort ENMT: Denies: throat pain or dental pain Card: Reports: chest pain Resp: Denies: dyspnea GI: Denies: abdominal pain, nausea, vomiting or diarrhea : Denies: dysuria Musc: Denies: neck pain or back pain Skin/Breast: Denies: rash Neuro: Reports: headache(s) Psych: Denies: depression Juan M/Lymph: Denies: easy bruising All/Imm: Denies: urticaria PFSH ED PFSH: Medical History (Updated 08/26/19 @ 20:08 by Keturah Taveras MD) Hypothyroid Social History Smoking and tobacco status: current every day smoker Physical Exam Const: COMMON NORMALS: no acute distress, patient oriented x3 and healthy appearing HENMT: COMMON NORMALS: normocephalic and atraumatic HEAD & SCALP: normocephalic and atraumatic Eye: COMMON NORMALS: Equal, round and reactive pupils present and EOMs intact bilaterally PUPIL: Yes Equal, round and reactive pupils present Neck/C-Spine: COMMON NORMALS: full ROM and supple Chest: COMMONS NORMALS: normal inspection of the chest and normal palpation of entire chest wall Resp: COMMON NORMALS: normal respiratory effort, No retractions, No use of accessory muscles and clear to auscultation bilaterally AUSCULTATION: clear to auscultation bilaterally Cardio: COMMON NORMALS: regular rate, regular rhythm and No murmurs present (Cardio) RATE: regular rate RHYTHM: regular rhythm GI: COMMON NORMALS: Normal to inspection, nondistended, normoactive bowel sounds present, Soft to palpation, non-tender and no masses PALPATION: Yes Soft to palpation Extremity: COMMON NORMALS: normal to inspection and full ROM Neuro: COMMON NORMALS: patient oriented x3, moves all extremities and no focal motor deficits Psych: COMMON NORMALS: mental status grossly normal, Normal thought process present and cooperative THOUGHT PROCESS: Normal thought process present Skin: COMMON NORMALS: no rashes or lesions noted and no wounds GENERAL SKIN EXAM: no rashes or lesions noted Course Vital Signs: Vital signs: Vital Signs Temperature 97.9 F 08/26/19 18:49 Pulse Rate 87 08/26/19 20:32 Respiratory Rate 20 H 08/26/19 20:32 Blood Pressure 140/87 08/26/19 20:32 Pulse Oximetry 98 08/26/19 20:32 MDM - Chest Pain MDM Narrative: Medical decision making narrative: Perla presents here with migraine headache along with atypical chest pain. Patient's CT head and EKG and blood work are all normal. Patient is well-appearing here and is stable for discharge. She states her symptoms resolved after Reglan and Benadryl. She has no signs of pulmonary embolism. Patient is stable for discharge and return if worsening. Lab Data: Labs: Lab Results 08/26/19 08/26/19 08/26/19 Range/Units 19:20 19:20 19:20 WBC 13.4 H (4.0-10.0) 10^3/ uL RBC 4.37 (4.1-5.3) 10^6/u L Hgb 13.8 (11.5-15.3) g/dL Hct 42.6 (37.0-47.0) % MCV 97.5 (81-99) fL MCH 31.6 (28.0-34.0) pg MCHC 32.4 (30.0-36.0) g/dL RDW 13.3 (12.1-15.1) % Plt Count 304 (130-400) 10^3/c mm MPV 11.2 H (7.4-10.4) fL Neut % (Auto) 64.3 % Lymph % (Auto) 27.3 % [place] % (Auto) 5.6 % Eos % (Auto) 2.0 % Baso % (Auto) 0.4 % Neut # (Auto) 8.6 H (1.8-7.7) 10^3/u L Lymph # (Auto) 3.7 (0.8-4.8) 10^3/u L [place] # (Auto) 0.8 (0.2-0.9) 10^3/u L Eos # (Auto) 0.3 (0.0-0.8) 10^3/u L Baso # (Auto) 0.1 (0.0-0.1) 10^3/u L Nucleated RBC % (a uto) 0 % Nucleated RBCs # 0.0 /100WBC PT 11.60 (10.5-13.3) SECO NDS INR 0.82 (0.8-1.2) APTT 32.3 (23.9-36.7) SECO NDS D-Dimer <= 0.27 (0-0.59) ug/mIFE U Sodium 140 (136-145) mmol/L Potassium 3.4 L (3.5-5.1) mmol/L Chloride 103 (98-107) mmol/L Carbon Dioxide 23 (22-29) mmol/L Anion Gap 17.4 (5-19) BUN 7 (6-20) mg/dL Creatinine 0.6 (0.5-0.9) mg/dL GFR Calculation 112.5 (90-130) mL/min Glucose 121 H (65-115) mg/dL Calculated Osmolal ity 287 (285-295) mOsm/k g Calcium 9.6 (8.5-10.5) mg/dL Total Bilirubin 0.2 (0.15-1.2) mg/dL AST 11 (0-32) U/L ALT 16 (0-33) U/L Alkaline Phosphata se 87 (35-105) IU/L Troponin T Baselin e (0-10) ng/L NT-Pro-B Natriuret Pep 386 H (0-125) pg/mL Total Protein 6.7 (6.6-8.7) g/dL Albumin 4.1 (3.5-5.2) g/dL Globulin 2.6 (1.3-4.6) g/dL 08/26/19 Range/Units 19:20 WBC (4.0-10.0) 10^3/ uL RBC (4.1-5.3) 10^6/u L Hgb (11.5-15.3) g/dL Hct (37.0-47.0) % MCV (81-99) fL MCH (28.0-34.0) pg MCHC (30.0-36.0) g/dL RDW (12.1-15.1) % Plt Count (130-400) 10^3/c mm MPV (7.4-10.4) fL Neut % (Auto) % Lymph % (Auto) % [place] % (Auto) % Eos % (Auto) % Baso % (Auto) % Neut # (Auto) (1.8-7.7) 10^3/u L Lymph # (Auto) (0.8-4.8) 10^3/u L [place] # (Auto) (0.2-0.9) 10^3/u L Eos # (Auto) (0.0-0.8) 10^3/u L Baso # (Auto) (0.0-0.1) 10^3/u L Nucleated RBC % (a uto) % Nucleated RBCs # /100WBC PT (10.5-13.3) SECO NDS INR (0.8-1.2) APTT (23.9-36.7) SECO NDS D-Dimer (0-0.59) ug/mIFE U Sodium (136-145) mmol/L Potassium (3.5-5.1) mmol/L Chloride (98-107) mmol/L Carbon Dioxide (22-29) mmol/L Anion Gap (5-19) BUN (6-20) mg/dL Creatinine (0.5-0.9) mg/dL GFR Calculation (90-130) mL/min Glucose (65-115) mg/dL Calculated Osmolal ity (285-295) mOsm/k g Calcium (8.5-10.5) mg/dL Total Bilirubin (0.15-1.2) mg/dL AST (0-32) U/L ALT (0-33) U/L Alkaline Phosphata se (35-105) IU/L Troponin T Baselin e 6 (0-10) ng/L NT-Pro-B Natriuret Pep (0-125) pg/mL Total Protein (6.6-8.7) g/dL Albumin (3.5-5.2) g/dL Globulin (1.3-4.6) g/dL Imaging Data^: CXR: Attestation: I personally reviewed and interpreted this imaging study as follows: My impression: no acute abnormality CT Head: Attestation: I personally reviewed and interpreted this imaging study as follows: Radiologist's impression: [address] [address] [address] Scan Report Signed Patient: Perla Argueta Unit #: [id number] : 1980 Age/Sex: 38 / F ADM Date: 08/26/19 Loc: ER Room/Bed: Attending Dr: Ordering Provider/Ordering MD: Keturah Taveras MD Date of Service: 08/26/19 Procedure(s): CT head wo con* [id number] Accession Number(s): [id number] Report Number: [id number] PROCEDURE INFORMATION: Exam: CT Head Without Contrast Exam date and time: 08/26/2019 7:21 PM Age: 38 years old Clinical indication: Pain; Headache not specified; Patient HX: C/O DAMIAN w nausea TECHNIQUE: Imaging protocol: Computed tomography of the head without contrast. Radiation optimization: All CT scans at this facility use at least one of these dose optimization techniques: automated exposure control; mA and/or kV adjustment per patient size (includes targeted exams where dose is matched to clinical indication); or iterative reconstruction. COMPARISON: CT head wo con* [id number] 06/15/2018 4:11 PM RADIATION DOSE METRICS: Total DLP: 762.43 mGy-cm FINDINGS: The ventricles, sulci and basilar cisterns appear normal for the patient's stated age. There is no evidence of mass, hemorrhage or infarct. No extra-axial fluid collections are identified. There is no midline shift. There is no evidence of fracture. The visualized paranasal sinuses are well-aerated. CT/CT head wo con* [id number] IMPRESSION: No evidence for acute infarct, mass or hemorrhage. EKG Data^: EKG 1: Attestation: I personally reviewed and interpreted this EKG as follows: EKG interpretation date: 08/26/19 EKG interpretation time: 18:55 Interpretation: nsr hr [address] or t wave abnormalities qrs 98 qtc 422 Discharge Plan Discharge Patient Disposition: Home, Self-Care Clinical Impression: Chest pain Qualifiers: Chest pain type: unspecified Qualified Code(s): R07.9 - Chest pain, unspecified Migraine Qualifiers: Migraine type: unspecified Condition: Stable Prescriptions: New Naprosyn 500 mg tablet 500 mg PO BID PRN (Reason: pain) Qty: 20 RF: 0 Robaxin-750 750 mg tablet 750 mg PO Q6H Qty: 30 RF: 0 No Action levothyroxine 50 mcg Tablet 50 mcg PO DAILY RF: 0 Benadryl 25 mg Capsule 25 mg PO TID PRN (Reason: Itching) RF: 0 ibuprofen 200 mg Tablet 400 mg PO Q4H PRN (Reason: Pain) RF: 0 Probiotic 3 cap PO DAILY RF: 0 doxycycline monohydrate 100 mg Tablet 100 mg PO BID Qty: 14 RF: 0 Discharge Orders: Discharge Order (Routine); Ordered 08/26/19 Ordered By: Keturah Taveras Referrals: Alejandro Elam MD [Primary Care Provider] - 1-3 days Discharge Diet: Advance as tolerated Discharge Activity: Resume usual activity Patient Instructions: Chest Pain (ED) Discharge Date/Time: 08/26/19 20:33 Coding Level of Care Code ED Retail Training Manager for Chg Fwd Exam Comprehensive
[2019-08-26 19:27] LABS: Basophils # 0.1 10^3/uL (0.0-0.1); Basophils % 0.4 %; Eosinophils # 0.3 10^3/uL (0.0-0.8); Hematocrit 42.6 % (37.0-47.0); Hemoglobin 13.8 g/dL (11.5-15.3); Lymphocytes # 3.7 10^3/uL (0.8-4.8); Lymphocytes % 27.3 %; Mean Corpuscular HGB Conc 32.4 g/dL (30.0-36.0); Mean Corpuscular Hemoglobin 31.6 pg (28.0-34.0); Mean Corpuscular Volume 97.5 fL (81-99); Mean Platelet Volume 11.2 fL (7.4-10.4); Monocytes # 0.8 10^3/uL (0.2-0.9); Monocytes % 5.6 %; Neutrophils # 8.6 10^3/uL (1.8-7.7); Neutrophils % 64.3 %; Nucleated Red Blood Cells % 0 %; Platelet Count 304 10^3/cmm (130-400); Red Blood Count 4.37 10^6/uL (4.1-5.3); Red Cell Distribution Width 13.3 % (12.1-15.1); White Blood Count 13.4 10^3/uL (4.0-10.0)
[2019-08-26 19:35] VITALS: RESP 18
[2019-08-26] MEDS: morphine 4 mg/mL SDV 1 mL IVP (19:35)
[2019-08-26] MEDS: diphenhydrAMINE 50 mg/mL SDV 1mL IVP (19:36)
[2019-08-26] MEDS: metoclopramide 5 mg/mL SDV 2 mL 10 MG IVP (19:36)
[2019-08-26] MEDS: ondansetron 2 mg/ML SDV 2 mL 4 MG IVP (19:36)
[2019-08-26 19:37] LABS: INR 0.82 (0.8-1.2)
[2019-08-26 19:38] LABS: Partial Thromboplastin Time 32.3 SECONDS (23.9-36.7)
[2019-08-26 19:40] LABS: D Dimer <= 0.27 ug/mIFEU (0-0.59)
[2019-08-26 19:43] LABS: Troponin(5th) Baseline 6 ng/L (0-10)
[2019-08-26 19:54] LABS: Alanine Aminotransferase 16 U/L (0-33); Albumin Level 4.1 g/dL (3.5-5.2); Alkaline Phosphatase 87 IU/L (35-105); Anion Gap 17.4 (5-19); Aspartate Amino Transferase 11 U/L (0-32); Blood Urea Nitrogen 7 mg/dL (6-20); Calcium 9.6 mg/dL (8.5-10.5); Carbon Dioxide 23 mmol/L (22-29); Chloride 103 mmol/L (98-107); Globulin 2.6 g/dL (1.3-4.6); Glomerular Filtration Rate 112.5 mL/min (90-130); Glucose 121 mg/dL (65-115); NT Pro B Type Natriuretic Pept 386 pg/mL (0-125); Osmolality Calculated 287 mOsm/kg (285-295); Potassium 3.4 mmol/L (3.5-5.1); Sodium 140 mmol/L (136-145); Total Bilirubin 0.2 mg/dL (0.15-1.2); Total Protein 6.7 g/dL (6.6-8.7)
[2019-08-26 19:55] VITALS: BP 141/71; PULSE 81; RESP 23; O2SAT 97
--- NOTE | 2019-08-26 19:55 | PC.NURSE ---
Pt's IV D/C'd intact. Pressure dressing in place.
[2019-08-26 20:00] VITALS: BP 132/80; PULSE 83; RESP 18; O2SAT 98
[2019-08-26 20:32] VITALS: BP 140/87; PULSE 87; RESP 20; O2SAT 98
== END 2019-08-26 20:33 | disposition home or self-care (01) ==
PROVIDERS: Emergency Medicine; Emergency Provider Emergency Medicine; PCP Family Medicine
DX: R07.9 Chest pain, unspecified (principal); G43.909 Migraine, unspecified, not intractable, without status migrainosus; F17.210 Nicotine dependence, cigarettes, uncomplicated
CPT/HCPCS: 12345; 70450; 71045; 80053; 83880; 84484; 85025; 85378; 85610; 85730; 93005; 96374; 96375; 99282; 99284; J1200; J2270; J2405; J2765

== ENCOUNTER 2020-09-08 10:47 | Emergency (ER) | payer MEDICARE, MEDICAID, SELFPAY ==
[2020-09-08 11:03] VITALS: BP 152/112; PULSE 105; RESP 18; TEMP 37.6; O2SAT 100; BMI 26.4
--- NOTE | 2020-09-08 11:10 | XRR_ITS ---
PROCEDURE INFORMATION: Exam: XR Chest Exam date and time: 09/08/2020 11:10 AM Age: 39 years old Clinical indication: Cough and shortness of breath; Prior surgery; Surgery type: Breast biopsy TECHNIQUE: Imaging protocol: XR of the chest. Views: 1 view. COMPARISON: CR XR chest 1V portable [id number] 08/26/2019 7:28 PM FINDINGS: Lungs: No pneumonia or pulmonary edema. Pleural spaces: No pleural effusion or pneumothorax. Heart/Mediastinum: The cardiac silhouette is not enlarged. The mediastinal contours are normal. Bones/joints: No acute osseous abnormality. XR/XR chest 1V portable [id number] IMPRESSION: No acute abnormality.
--- NOTE | 2020-09-08 11:11 | W.ED.SKABFB ---
HPI - Skin/Abscess/Foreign Bdy General: Chief complaint: Skin/Abscess/Foreign Body Stated complaint: Cyst on L. Upper Body/Poss Spreading Infection Time Seen by Provider: 09/08/20 11:03 Source: patient Limitations: no limitations History of Present Illness: HPI narrative: Patient is a 39-year-old female who presents to ED today with complaint of abscesses to her bilateral axillary regions. Patient tells me she first noticed an abscess to her left axillary space and states 2 days ago it was drained at urgent care-no packing placed per patient. She was placed on Bactrim. She now states she has one on her right side. She feels like the sores are making me sick stating she feels fatigued and achy. She also states she has a productive cough. No fevers. MD complaint: abscess/boil Onset (ago): day(s) Tetanus up to date: yes Location: LUE and RUE Severity: moderate Pain Consistency: constant Relieving factors: none Exacerbating factors: none Context: none Associated symptoms: Deny chills, fever(s), nausea or vomiting Treatments prior to arrival: antibiotic Review of Systems Const: Reports: body aches and malaise; Denies: fever(s), chills, change in appetite, change in weight, fatigue or night sweats Eyes: Denies: change in vision or blurry vision ENMT: Denies: throat pain or odynophagia Card: Denies: chest pain, palpitations, irregular heart rhythm, edema, swelling of feet/ankles, lightheadedness, syncope, pre-syncope, dyspnea on exertion or orthopnea Resp: Reports: productive cough, change in phlegm color and chest congestion; Denies: dyspnea, wheezing, stridor, pain on inspiration or hemoptysis GI: Denies: abdominal pain, nausea or vomiting Musc: Denies: neck pain, back pain, extremity pain or joint pain Skin/Breast: Reports: sores (axillary abscess ) Neuro: Denies: headache(s), numbness in extremities, weakness in extremities, sensory changes or dizziness [facility] ED PFSH: Medical History Hypothyroid Social History Smoking and tobacco status: current every day smoker Physical Exam Const: COMMON NORMALS: no acute distress, patient oriented x3, no limitations and alert GENERAL APPEARANCE: cooperative HENMT: COMMON NORMALS: normocephalic and atraumatic HEAD & SCALP: normocephalic and atraumatic Lymph: LYMPHATIC: no lymphadenopathy noted Resp: COMMON NORMALS: normal respiratory effort and clear to auscultation bilaterally AUSCULTATION: clear to auscultation bilaterally Cardio: COMMON NORMALS: regular rate and regular rhythm RATE: regular rate RHYTHM: regular rhythm Extremity: COMMON NORMALS: normal to inspection and full ROM GENERAL: Yes normal exam except as noted Neuro: COMMON NORMALS: patient oriented x3 SENSORIUM/ORIENTATION: Yes alert Skin: NARRATIVE SKIN EXAM: pt has a 1 in indurated abscess to L axillary region that has a very small opening with purulent drainage; she has a 1cm indurated abscess to R axillary region that is not amendable to I&D at this time Procedures Abscess I/D Site: upper extremity (L axilla) Side (if applicable): left Local Anesthetic: lidocaine 2% Amount of anesthesia used (mL): 2.0 Technique: incised with #11 blade Amount of fluid expressed (mL): 4 Irrigation: No Packing used?: plain Course Vital Signs: Vital signs: Vital Signs Temperature 99.6 F 09/08/20 11:03 Pulse Rate 105 H 09/08/20 11:03 Respiratory Rate 18 09/08/20 11:03 Blood Pressure 152/112 09/08/20 11:03 Pulse Oximetry 100 09/08/20 11:03 MDM - Skin/Abscess/Foreign Bdy MDM Narrative: Medical decision making narrative: Left axillary abscess draining from very small punctate janny. This was opened and packed to help facilitate drainage-purulent material drained so this should overall improve clinical course. Culture obtained. Labs and CXR normal. Will have patient continue her Bactrim at this time. Avoid shaving area until lesions completely cleared and then needs to change razor. Lab Data: Labs: Lab Results 09/08/20 09/08/20 Range/Units 11:25 11:25 WBC 9.4 (4.0-10.0) 10^3/ uL RBC 4.76 (4.1-5.3) 10^6/u L Hgb 14.8 (11.5-15.3) g/dL Hct 43.8 (37.0-47.0) % MCV 92.0 (81-99) fL MCH 31.1 (28.0-34.0) pg MCHC 33.8 (30.0-36.0) g/dL RDW 13.1 (12.1-15.1) % Plt Count 284 (130-400) 10^3/c mm MPV 10.8 H (7.4-10.4) fL Neut % (Auto) 70.2 % Lymph % (Auto) 25.5 % Humphreys % (Auto) 2.9 % Eos % (Auto) 0.7 % Baso % (Auto) 0.3 % Neut # (Auto) 6.62 (1.8-7.7) 10^3/u L Lymph # (Auto) 2.4 (0.8-4.8) 10^3/u L Humphreys # (Auto) 0.3 (0.2-0.9) 10^3/u L Eos # (Auto) 0.1 (0.0-0.8) 10^3/u L Baso # (Auto) 0.0 (0.0-0.1) 10^3/u L Nucleated RBC % (a uto) 0 % Nucleated RBCs # 0.0 /100WBC Sodium 137 (136-145) mmol/L Potassium 3.4 L (3.5-5.1) mmol/L Chloride 100 (98-107) mmol/L Carbon Dioxide 22 (22-29) mmol/L Anion Gap 18.4 (5-19) BUN 10 (6-20) mg/dL Creatinine 0.7 (0.5-0.9) mg/dL GFR Calculation 93.6 (90-130) mL/min Glucose 130 H (65-115) mg/dL Calculated Osmolal ity 285 (285-295) mOsm/k g Calcium 8.7 (8.5-10.5) mg/dL Total Bilirubin 0.3 (0.15-1.2) mg/dL AST 10 (0-32) U/L ALT 15 (0-33) U/L Alkaline Phosphata se 95 (35-105) IU/L Total Protein 7.1 (6.6-8.7) g/dL Albumin 4.1 (3.5-5.2) g/dL Globulin 3.0 (1.3-4.6) g/dL Discharge Plan Discharge Patient Disposition: Home Clinical Impression: Abscesses of both axillae Condition: Stable Prescriptions: No Action hydrochlorothiazide 25 mg tablet 25 mg PO QAM RF: 0 lisinopril 40 mg tablet 40 mg PO DAILY RF: 0 sulfamethoxazole-trimethoprim [Bactrim DS] 800-160 mg tablet 1 tab PO Q12H Qty: 14 RF: 0 Discharge Orders: Discharge ED (Routine); Ordered 09/08/20 Ordered By: Manuela Oconnor Referrals: Alejandro Elam MD [Primary Care Provider] - Patient Instructions: Abscess Incision and Drainage (ED), Abscess (ED) Activity Restrictions/Additional Instructions: As we discussed continue taking your Bactrim as prescribed and until finished. You may remove the packing in 72 hours. You may return to the emergency department for worsening abscess despite antibiotic therapy, fevers, or any other concerns you may have. Coding Level of Care Code ED State Historical [employer] Director for Sharan Fwlyndon Exam Detailed
[2020-09-08 11:33] LABS: Basophils % 0.3 %; Eosinophils # 0.1 10^3/uL (0.0-0.8); Eosinophils % 0.7 %; Hematocrit 43.8 % (37.0-47.0); Hemoglobin 14.8 g/dL (11.5-15.3); Lymphocytes # 2.4 10^3/uL (0.8-4.8); Lymphocytes % 25.5 %; Mean Corpuscular HGB Conc 33.8 g/dL (30.0-36.0); Mean Corpuscular Hemoglobin 31.1 pg (28.0-34.0); Mean Platelet Volume 10.8 fL (7.4-10.4); Monocytes # 0.3 10^3/uL (0.2-0.9); Monocytes % 2.9 %; Neutrophils # 6.62 10^3/uL (1.8-7.7); Neutrophils % 70.2 %; Nucleated Red Blood Cells % 0 %; Platelet Count 284 10^3/cmm (130-400); Red Blood Count 4.76 10^6/uL (4.1-5.3); Red Cell Distribution Width 13.1 % (12.1-15.1); White Blood Count 9.4 10^3/uL (4.0-10.0)
[2020-09-08 12:01] LABS: Alanine Aminotransferase 15 U/L (0-33); Albumin Level 4.1 g/dL (3.5-5.2); Alkaline Phosphatase 95 IU/L (35-105); Anion Gap 18.4 (5-19); Aspartate Amino Transferase 10 U/L (0-32); Blood Urea Nitrogen 10 mg/dL (6-20); Calcium 8.7 mg/dL (8.5-10.5); Carbon Dioxide 22 mmol/L (22-29); Chloride 100 mmol/L (98-107); Glomerular Filtration Rate 93.6 mL/min (90-130); Glucose 130 mg/dL (65-115); Osmolality Calculated 285 mOsm/kg (285-295); Potassium 3.4 mmol/L (3.5-5.1); Sodium 137 mmol/L (136-145); Total Bilirubin 0.3 mg/dL (0.15-1.2); Total Protein 7.1 g/dL (6.6-8.7)
--- NOTE | 2020-09-08 12:20 | PC.NURSE ---
applied non adherent telfa secured with tegaderm. reviewed wound care instructions, antibiotic use and follow up care as well as s/s of wound infection worsening.
[2020-09-08 12:22] VITALS: BP 142/93; PULSE 84; RESP 18; O2SAT 98
== END 2020-09-08 12:24 | disposition home or self-care (01) ==
PROVIDERS: Emergency Provider Physician Assistant; PCP Family Medicine
DX: L02.412 Cutaneous abscess of left axilla (principal); L02.411 Cutaneous abscess of right axilla; F17.210 Nicotine dependence, cigarettes, uncomplicated
CPT/HCPCS: 10060; 71045; 80053; 85025; 87070; 87075; 87077; 87186; 87205; 99283

== ENCOUNTER 2020-10-17 08:29 | Emergency (ER) | payer MEDICARE, MEDICAID, SELFPAY ==
[2020-10-17 08:52] VITALS: BP 152/92; PULSE 87; RESP 18; TEMP 36.5; O2SAT 99; BMI 27.0
--- NOTE | 2020-10-17 09:32 | W.ED.HA ---
HPI - Headache General: Chief Complaint: Headache Stated Complaint: headache, HTN Time Seen by Provider: 10/17/20 08:46 History of Present Illness: HPI Narrative: 40-year-old female presents with a migraine.. She has had it for the last 5 days she is taking clonidine which she used for blood pressure as well as some Excedrin Migraine with no relief. She has a known history of hypertension has not been taking her blood pressure medications regularly. She is homeless currently and has been having difficulty with suicidal ideation. She has no plan and states she actually does not intend to but thinks about it frequently hoping she would . He has previously been hospitalized for psychiatric issues with homicidal intent which about 15 or 20 years ago but denies any previous suicidal intent. MD elicited complaint: headache Pertinent past history: migraines Onset (ago): day(s) (5) Onset description: gradually Associated symptoms: Deny chest pain, fever(s), malaise, nausea, rash or vomiting Review of Systems Const: Denies: fever(s), chills, body aches, change in appetite, fatigue or malaise ENMT: Denies: throat pain, ear or mastoid pain, nasal discharge or nasal congestion Card: Denies: chest pain, edema, dyspnea on exertion or orthopnea Resp: Denies: dyspnea, productive cough or non-productive cough GI: Denies: abdominal pain, nausea, vomiting, hematemesis, coffee ground emesis, diarrhea, constipation, bloating, hematochezia or melena : Denies: flank pain, difficulty voiding, dysuria, urinary frequency or urinary urgency Skin/Breast: Denies: rash or pruritus PFSH ED PFSH: Medical History Hypothyroid Major depression, recurrent Social History Smoking and tobacco status: current every day smoker Physical Exam Const: GENERAL APPEARANCE: cooperative ORIENTATION/CONSCIOUSNESS: Yes awake, Yes oriented to person, Yes oriented to place and Yes oriented to time HENMT: COMMON NORMALS: normocephalic, atraumatic and hearing grossly normal bilaterally HEAD & SCALP: normocephalic and atraumatic Neck/C-Spine: COMMON NORMALS: no JVD Lymph: LYMPHATIC: no lymphadenopathy noted and no lymphedema noted Resp: COMMON NORMALS: normal respiratory effort, No retractions, No use of accessory muscles and clear to auscultation bilaterally AUSCULTATION: clear to auscultation bilaterally Cardio: COMMON NORMALS: no JVD, regular rate, regular rhythm and No murmurs present (Cardio) RATE: regular rate RHYTHM: regular rhythm GI: COMMON NORMALS: Soft to palpation and No hepatosplenomegaly present AUSCULTATION: Yes normoactive bowel sounds PALPATION: Yes Soft to palpation, No Tenderness to palpation present (GI), No Guarding due to palpation present (GI) and Yes No hepatosplenomegaly present Extremity: COMMON NORMALS: normal to inspection, capillary refill normal, no clubbing, cyanosis or edema, no calf tenderness and no pedal edema Neuro: SENSORIUM/ORIENTATION: Yes oriented to person, Yes oriented to place and Yes oriented to time Skin: COMMON NORMALS: no rashes or lesions noted GENERAL SKIN EXAM: no rashes or lesions noted Course Vital Signs: Vital signs: Vital Signs Temperature 97.7 F 10/17/20 08:52 Pulse Rate 77 10/17/20 13:20 Respiratory Rate 15 10/17/20 13:20 Blood Pressure 135/94 10/17/20 13:20 Pulse Oximetry 100 10/17/20 13:01 MDM - Headache Lab Data: Labs: Lab Results 10/17/20 10/17/20 Range/Units 10:15 10:15 WBC 9.0 (4.0-10.0) 10^3/ uL RBC 3.98 L (4.1-5.3) 10^6/u L Hgb 12.2 (11.5-15.3) g/dL Hct 38.1 (37.0-47.0) % MCV 95.7 (81-99) fL MCH 30.7 (28.0-34.0) pg MCHC 32.0 (30.0-36.0) g/dL RDW 13.3 (12.1-15.1) % Plt Count 358 (130-400) 10^3/c mm MPV 10.8 H (7.4-10.4) fL Neut % (Auto) 70.8 % Lymph % (Auto) 20.3 % Bladen % (Auto) 6.1 % Eos % (Auto) 2.3 % Baso % (Auto) 0.3 % Neut # (Auto) 6.37 (1.8-7.7) 10^3/u L Lymph # (Auto) 1.8 (0.8-4.8) 10^3/u L Bladen # (Auto) 0.6 (0.2-0.9) 10^3/u L Eos # (Auto) 0.2 (0.0-0.8) 10^3/u L Baso # (Auto) 0.0 (0.0-0.1) 10^3/u L Nucleated RBC % (a uto) 0 % Nucleated RBCs # 0.0 /100WBC Sodium 138 (136-145) mmol/L Potassium 4.1 (3.5-5.1) mmol/L Chloride 104 (98-107) mmol/L Carbon Dioxide 25 (22-29) mmol/L Anion Gap 13.1 (5-19) BUN 10 (6-20) mg/dL Creatinine 0.5 (0.5-0.9) mg/dL GFR Calculation 137.4 H (90-130) mL/min Glucose 80 (65-115) mg/dL Calculated Osmolal ity 284 L (285-295) mOsm/k g Calcium 8.7 (8.5-10.5) mg/dL Discharge Plan Discharge Patient Disposition: Home Clinical Impression: Migraine, HTN (hypertension) Condition: Stable Prescriptions: New amlodipine 10 mg tablet 10 mg PO DAILY Qty: 30 RF: 0 promethazine 25 mg tablet 25 mg PO Q6H PRN (Reason: nausea and vomiting) Qty: 20 RF: 0 Discharge Orders: Discharge ED (Routine); Ordered 10/17/20 Ordered By: Ten Orona Referrals: Alejandro Elam MD [Primary Care Provider] - Patient Instructions: Opioid Safety Activity Restrictions/Additional Instructions: His management will help you get you set up with a primary care physician and referral to [facility]. Coding Level of Care Code ED Depositing Machine Operator for Sharan Bullard
[2020-10-17] MEDS: ketorolac 30 mg/mL INJ IVP (10:00)
[2020-10-17] MEDS: amlodipine 10 mg Tablet PO (10:00)
[2020-10-17] MEDS: hyDRALAzine 20 mg/mL INJ 1 mL 10 MG IVP (10:00)
[2020-10-17] MEDS: valproic acid inj 500 MG in sodium chloride 0.9% 50 ML 55 MG IV (10:01)
[2020-10-17 10:23] LABS: Basophils % 0.3 %; Eosinophils # 0.2 10^3/uL (0.0-0.8); Eosinophils % 2.3 %; Hematocrit 38.1 % (37.0-47.0); Hemoglobin 12.2 g/dL (11.5-15.3); Lymphocytes # 1.8 10^3/uL (0.8-4.8); Lymphocytes % 20.3 %; Mean Corpuscular Hemoglobin 30.7 pg (28.0-34.0); Mean Corpuscular Volume 95.7 fL (81-99); Mean Platelet Volume 10.8 fL (7.4-10.4); Monocytes # 0.6 10^3/uL (0.2-0.9); Monocytes % 6.1 %; Neutrophils # 6.37 10^3/uL (1.8-7.7); Neutrophils % 70.8 %; Nucleated Red Blood Cells % 0 %; Platelet Count 358 10^3/cmm (130-400); Red Blood Count 3.98 10^6/uL (4.1-5.3); Red Cell Distribution Width 13.3 % (12.1-15.1)
[2020-10-17 10:43] LABS: Anion Gap 13.1 (5-19); Blood Urea Nitrogen 10 mg/dL (6-20); Calcium 8.7 mg/dL (8.5-10.5); Carbon Dioxide 25 mmol/L (22-29); Chloride 104 mmol/L (98-107); Glomerular Filtration Rate 137.4 mL/min (90-130); Glucose 80 mg/dL (65-115); Osmolality Calculated 284 mOsm/kg (285-295); Potassium 4.1 mmol/L (3.5-5.1); Sodium 138 mmol/L (136-145)
--- NOTE | 2020-10-17 12:33 | PM.PSYCN ---
Providers/Reason for Consult Consulting Physican/Specialty*: Armin Armstrong MD / Psychiatry Reason for Consult*: Depression, some wish to be . Evaluation of safety. Requesting Physcian: Dr. Orona Primary Care Provider: Alejandro Elam Psych Consult HPI History of Present Illness Perla Argueta is a 40 year old female who presented to the ED with a migraine headache and disclosed suicidal ideation. The note from the ED provider says: 40-year-old female presents with a migraine.. She has had it for the last 5 days she is taking clonidine which she used for blood pressure as well as some Excedrin Migraine with no relief. She has a known history of hypertension has not been taking her blood pressure medications regularly. She is homeless currently and has been having difficulty with suicidal ideation. She has no plan and states she actually does not intend to but thinks about it frequently hoping she would . He has previously been hospitalized for psychiatric issues with homicidal intent which about 15 or 20 years ago but denies any previous suicidal intent. The patient reports that she got out of snf on August 14, 2020. She was given a 2-week supply of Lexapro of unknown dose, and her mood was fairly good throughout that period. In the last few weeks she has become progressively depressed. She has passive suicidal ideation, with the thought that she would be better off . However she is working to regain custody of her children, and has many reasons to live. She says, I would never kill myself. She reports having had active thoughts of ending her life in the past, but not recently. She reports using methamphetamine once in the last week, but says she has been otherwise abstinent since her release from snf 2 months ago. She was using heroin before. She denies using much alcohol. She says she smokes about 1 pack/day of cigarettes. She does want to attend a drug treatment, but has not found a program that takes her insurance, which is [facility]. She would like to restart her Lexapro, but has not found a provider who can do so. She says that Dr. Ayala, her previous provider, no longer takes her insurance either. The patient reports being in a stressful situation currently. Her mother, who has custody of her children, will not allow her to live back in the house. She is allowed to live in a tent in the yard and to both visit the children and take a shower inside twice a week. She says she is moving to a camper in the next couple of days. She is happy about this move. She currently still has a headache which is improved somewhat since arrival in the ED. Psychiatric history: As above. Substance use history: As above. Family history: She says that her mother and sisters have mood disorder diagnoses. Psychosocial history: The patient was born and raised in [place], [place]. She graduated from high school. 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 Legal history: Recently in snf on drug charges. Medical history: She has a history of migraine headaches and hypertension. Review of Systems General: Reports: 10 or more systems reviewed and unremarkable except in HPI and below Meds Current Medications: Current Medications Generic Name Dose Route Start Last Admin Trade Name Freq PRN Reason Stop Dose Admin Valproic Acid 500 mg/ Sodium 55 mls @ 55 mls/h r 10/17/20 10:00 10/17/20 10:01 Chloride IV 55 mls/hr Q8H WILLIAM Administration PFSH NPU PFSH: Medical History (Updated 10/17/20 @ 12:49 by Armin Armstrong MD) Hypothyroid Major depression, recurrent Social History Smoking and tobacco status: current every day smoker Mental Status Exam MSE Comments: This is a 40-year-old white female laying on a gurney and one of the ED rooms. She has a sitter at her side. She is quite tearful, but cooperative. No abnormal movements or tics. No psychomotor agitation or retardation. Alert and oriented x3. Attention is intact. She is able to spell the word WORLD correctly forwards and backwards. Speech is at a regular rate, rhythm and volume. Mood is depressed and anxious. Affect is quite tearful. Thought process: Logical and goal-directed. Thought content: She describes passive but not active suicidal ideation, and indicates a strong intention not to act on any suicidal thoughts she may have. No homicidal ideation. She says she occasionally hears things that others do not hear but has not had any hallucinations in the last week. She has visual illusions in the dark at bedtime, but no visual hallucinations. Insight and judgment appear to be intact, despite her distress. She understands her medical and psychiatric condition, and makes appropriate decisions with the information provided. Vitals/I&O/Wt Last Vital Signs Temp 97.7 F 10/17/20 08:52 Pulse 87 10/17/20 08:52 Resp 18 10/17/20 08:52 BP 152/92 10/17/20 08:52 Pulse Ox 99 10/17/20 08:52 Weight last 48 hrs Weight 87.997 kg A&P Assessment and plan (1) Major depression, recurrent: Status: Acute (2) Heroin use disorder, mild, in early remission, abuse: Status: Acute (3) Methamphetamine use disorder, mild, in early remission, abuse: Status: Acute Additional A&P Information This is a 40-year-old white female who has become depressed after running out of Lexapro 6 weeks ago. She has a history of drug use and was incarcerated on drug charges. She has a strong desire to become abstinent, have an improved mood, and regain custody of her children. Recommendations from psychiatry: 1. Restart Lexapro 10 mg daily 2. Referral to a psychiatric provider or PCP who can follow this medication 3. Referral for drug treatment I appreciate the opportunity to work with this nice lady. Thank you for the consultation. Attestations NPU Medical Necessity Statement*: N/A - please refer to primary team note for medical necessity. Coding Level of Care Code Acute Market Development Manager for Sharan Fwlyndon Diagnoses Major depression, recurrent F33.9 Heroin use disorder, mild, in early remission, abuse F11.11 Methamphetamine use disorder, mild, in early remission, abuse F15.11
[2020-10-17 12:53] VITALS: BP 135/94; PULSE 77; RESP 15; O2SAT 100
[2020-10-17 13:01] VITALS: BP 135/94; PULSE 77; RESP 15; O2SAT 100
[2020-10-17 13:20] VITALS: BP 135/94; PULSE 77; RESP 15
--- NOTE | 2020-10-20 16:29 | DCPLANNER ---
manager cardiovascular had message to speak with patient about getting a primary care physician, and [facility]. manager cardiovascular called [phone], unable to speak with patient at this time, and unable to leave a voicemail at this time due to mailbox being full.
== END 2020-10-17 13:23 | disposition home or self-care (01) ==
PROVIDERS: Emergency Provider Family Medicine; PCP Family Medicine
DX: G43.909 Migraine, unspecified, not intractable, without status migrainosus (principal); I10 Essential (primary) hypertension; E03.9 Hypothyroidism, unspecified; Z59.0 Homelessness; F17.200 Nicotine dependence, unspecified, uncomplicated
CPT/HCPCS: 80048; 85025; 96365; 96366; 96375; 99284; J0360; J1885

== ENCOUNTER 2021-02-08 15:54 | Emergency (ER) | payer MEDICARE, MEDICAID, SELFPAY ==
[2021-02-08 16:08] VITALS: BP 165/109; PULSE 109; RESP 18; TEMP 36.8; O2SAT 97
--- NOTE | 2021-02-08 16:15 | XRR_ITS ---
PROCEDURE INFORMATION: Exam: XR Chest Exam date and time: 02/08/2021 4:15 PM Age: 40 years old Clinical indication: Cough TECHNIQUE: Imaging protocol: XR of the chest. Views: 1 view. COMPARISON: CR XR chest 1V portable [id number] 09/08/2020 11:28 AM FINDINGS: Lungs: Unremarkable. No consolidation. Pleural spaces: Unremarkable. No pleural effusion. No pneumothorax. Heart/Mediastinum: Unremarkable. No cardiomegaly. Bones/joints: Unremarkable. XR/XR chest 1V portable [id number] IMPRESSION: No acute findings. Radiation Dose CTDIVOL = (mGy): DLP = (mGy-cm)
--- NOTE | 2021-02-08 16:20 | ED_ITS ---
HPI - COVID General: Chief Complaint: COVID symptoms Stated Complaint: productive cough; congestion Time Seen by Provider: 02/08/21 16:04 Triage information: Has fever, cough or shortness of breath . History of Present Illness: HPI Narrative: Patient complain about sinus problems has drainage and cough. Denies fever, chills loss of taste smell or headache. Patient does not want Covid tested. Patient says it is a sinus infection she has had before. Cough from drainage. Patient denies fever. MD complaint: other (Sinus problems.) Prior covid testing: no COVID 19 common symptoms: positive non-productive cough and nasal congestion; negative fever(s), chills, productive cough, dyspnea, body aches, headache(s), throat pain, nausea or vomiting COVID 19 other sytmptoms: negative chest pain COVID Results: No Data to Display Review of Systems Const: Denies: fever(s), chills or body aches Eyes: Denies: change in vision or blurry vision ENMT: Reports: nasal congestion and other (Sinus pressure); Denies: throat pain Card: Denies: chest pain or dyspnea on exertion Resp: Reports: non-productive cough; Denies: dyspnea or productive cough GI: Denies: abdominal pain, nausea or vomiting Musc: Denies: extremity pain Skin/Breast: Denies: rash Neuro: Denies: headache(s) Psych: Denies: anxiety or depression Juan M/Lymph: Denies: easy bruising PFS ED PFSH: Medical History Hypothyroid Major depression, recurrent Social History Smoking and tobacco status: current every day smoker Physical Exam Const: COMMON NORMALS: no acute distress, average body habitus and patient oriented x3 HENMT: COMMON NORMALS: normocephalic and TM's normal bilaterally HEAD & SCALP: normal to inspection and normocephalic FACE & SINUS: sinus tenderness NOSE: Nasal discharge present purulent TYMPANIC MEMBRANE: TM's normal bilaterally THROAT: posterior oropharynx normal Eye: COMMON NORMALS: conjunctivae normal GENERAL EYE: appearance normal, both eyes and all related structures CONJUNCTIVA: Yes conjunctivae normal Neck/C-Spine: COMMON NORMALS: no JVD Chest: COMMONS NORMALS: normal inspection of the chest Resp: COMMON NORMALS: normal respiratory effort and clear to auscultation bilaterally AUSCULTATION: clear to auscultation bilaterally Cardio: COMMON NORMALS: no JVD, regular rate and regular rhythm RATE: regular rate RHYTHM: regular rhythm GI: COMMON NORMALS: Normal to inspection, nondistended, normoactive bowel sounds present Extremity: COMMON NORMALS: normal to inspection and full ROM Neuro: COMMON NORMALS: patient oriented x3 Course Vital Signs: Vital signs: Vital Signs Temperature 97.9 F 02/08/21 16:43 Pulse Rate 91 02/08/21 16:43 Respiratory Rate 16 02/08/21 16:43 Blood Pressure 178/118 02/08/21 16:43 Pulse Oximetry 99 02/08/21 16:43 MDM - COVID COVID Results: No Data to Display Discharge Plan Discharge Patient Disposition: Home Clinical Impression: Sinusitis Qualifiers: Sinusitis location: pansinusitis Chronicity: acute Recurrence: non-recurrent Qualified Code(s): J01.40 - Acute pansinusitis, unspecified Condition: Stable Prescriptions: New Decadron 6 mg tablet 6 mg PO DAILY Qty: 7 RF: 0 Augmentin 875-125 mg tablet 1 tab PO BID Qty: 14 RF: 0 No Action amlodipine 10 mg tablet 10 mg PO DAILY Qty: 30 RF: 0 promethazine 25 mg tablet 25 mg PO Q6H PRN (Reason: nausea and vomiting) Qty: 20 RF: 0 Discharge Orders: Discharge ED (Routine); Ordered 02/08/21 Ordered By: eS Bush Referrals: Alejandro Elam MD [Primary Care Provider] - Discharge Diet: Usual diet Discharge Activity: Resume usual activity Patient Instructions: Sinusitis (ED) Activity Restrictions/Additional Instructions: Follow-up with medical provider as directed. Take medications as prescribed. Return to the ER or your medical provider if condition worsens. Please read and understand discharge instructions. If any questions ask please. Coding Level of Care Code ED Triage Register Nurse for Sharan Fwd Exam Comprehensive
[2021-02-08 16:43] VITALS: BP 178/118; PULSE 91; RESP 16; TEMP 36.6; O2SAT 99
[2021-02-08] MEDS: cephALEXin 500 mg Capsule PO (16:48)
[2021-02-08] MEDS: dexamethasone 4 mg Tablet PO (16:56)
[2021-02-08 16:58] VITALS: O2SAT 96
== END 2021-02-08 16:59 | disposition home or self-care (01) ==
PROVIDERS: Emergency Provider Nurse Practitioner Family; PCP Family Medicine
DX: J01.40 Acute pansinusitis, unspecified (principal)
CPT/HCPCS: 71045; 99283; J8540

== ENCOUNTER 2021-05-29 21:13 | Emergency (ER) | payer MEDICARE, MEDICAID, SELFPAY ==
[2021-05-29 21:24] VITALS: BP 164/109; PULSE 84; RESP 20; TEMP 36.5; O2SAT 97; BMI 28.8
--- NOTE | 2021-05-29 21:33 | W.ED.HA ---
HPI - Headache General: Chief Complaint: Headache Stated Complaint: weak, headache from injections in neck Time Seen by Provider: 05/29/21 21:33 History of Present Illness: 40-year-old female comes in today with complaints of headache. Patient had some injections into a dermatologic rash which was thought to be eczema at the base of her neck. Injections were done yesterday. Today patient started having a headache which is worsened throughout the day. Patient denies any fever. Patient appears in moderate pain. MD elicited complaint: headache Onset (ago): hour(s) Onset description: gradually and on awakening Location: neck Review of Systems General: Reports: 10 or more systems reviewed and unremarkable except in HPI and below Neuro: Reports: headache(s) PFSH ED PFSH: Medical History Hypothyroid Major depression, recurrent Social History Smoking and tobacco status: current every day smoker Physical Exam Const: COMMON NORMALS: alert HENMT: COMMON NORMALS: normocephalic and Normal external nose present HEAD & SCALP: normocephalic NOSE: Normal external nose present Eye: COMMON NORMALS: Equal, round and reactive pupils present and EOMs intact bilaterally PUPIL: Yes Equal, round and reactive pupils present Neck/C-Spine: CERVICAL SPINE: Yes Paracervical muscle tenderness OTHER: Scaly rash to the left posterior neck. Resp: COMMON NORMALS: normal respiratory effort and clear to auscultation bilaterally AUSCULTATION: clear to auscultation bilaterally Cardio: COMMON NORMALS: regular rate and regular rhythm RATE: regular rate RHYTHM: regular rhythm Extremity: COMMON NORMALS: full ROM Neuro: SENSORIUM/ORIENTATION: Yes alert Psych: COMMON NORMALS: cooperative Course ED course: 2336, headache was down to a pain scale of 3 out of 10 and was released to home. Vital Signs: Vital signs: Vital Signs Temperature 97.7 F 05/29/21 21:24 Pulse Rate 84 05/29/21 21:24 Respiratory Rate 20 H 05/29/21 21:24 Blood Pressure 164/109 05/29/21 21:24 Pulse Oximetry 97 05/29/21 21:24 MDM - Headache Medical Decision Making Patient presents with a headache. Patient had steroid injections to the base of her neck yesterday to treat a rash. Patient reports awaking this morning with pain and discomfort to the neck causing a headache this afternoon to start and worsen. Patient appears in moderate pain. Patient has muscle tenderness in the paracervical muscles. No signs of redness or warmth is noted to the rash with the injections were made. Differential diagnosis includes adverse drug effect, tension headache, migraine headache. Patient was given a dose of promethazine and Toradol which helped her rest but she continued to complain of headache mainly behind her left eye. Patient was then given 10 mg of Reglan. Patient's pain was reduced to a 3 out of 10 this was down from 10 she was then released to home. Discharge Plan Discharge Patient Disposition: Home Clinical Impression: Headache Condition: Stable Prescriptions: New promethazine 25 mg tablet 25 mg PO Q6H PRN (Reason: headache, n/v) Qty: 10 0RF diclofenac sodium 75 mg tablet,delayed release (DR/EC) 75 mg PO BID PRN (Reason: headache) Qty: 10 0RF No Action amlodipine 10 mg tablet 10 mg PO DAILY Qty: 30 0RF promethazine 25 mg tablet 25 mg PO Q6H PRN (Reason: nausea and vomiting) Qty: 20 0RF Decadron 6 mg tablet 6 mg PO DAILY Qty: 7 0RF Augmentin 875-125 mg tablet 1 tab PO BID Qty: 14 0RF Discharge Orders: Discharge ED (Routine); Ordered 05/29/21 Ordered By: Swapnil Toro Referrals: Alejandro Elam MD [Primary Care Provider] - Discharge Diet: Usual diet Discharge Activity: Increase activity as tolerated Patient Instructions: General Headache (ED) Activity Restrictions/Additional Instructions: Home and rest. Drink plenty of water. Take medication as directed as needed for headache. Follow-up with primary care for further instruction. Return to ER for new concerns. Coding Level of Care Code ED Equal Opportunity Counselor for Sharan Fwlyndon Exam Comprehensive
[2021-05-29] MEDS: promethazine 25 mg/mL SDV 1 mL IM (22:14)
[2021-05-29] MEDS: ketorolac 30 mg/mL INJ IM (22:14)
[2021-05-29] MEDS: metoclopramide 5 mg/mL SDV 2 mL 10 MG IM (22:53)
[2021-05-30 00:08] VITALS: BP 146/89; PULSE 95; RESP 20; O2SAT 98
== END 2021-05-30 00:11 | disposition home or self-care (01) ==
PROVIDERS: Emergency Provider Nurse Practitioner Family; PCP Family Medicine
DX: R51.9 Headache, unspecified (principal); F17.210 Nicotine dependence, cigarettes, uncomplicated
CPT/HCPCS: 96372; 99283; J1885; J2550; J2765

== ENCOUNTER 2021-11-22 15:25 | Emergency (ER) | payer MEDICARE, MEDICAID, SELFPAY ==
[2021-11-22 15:59] VITALS: BP 167/114; PULSE 93; RESP 14; TEMP 36.6; O2SAT 99; BMI 29.1
--- NOTE | 2021-11-22 16:27 | W.ED.GENADLT ---
HPI - General Adult General: Chief complaint: General Medical Stated complaint: Right foot pain Time Seen by Provider: 11/22/21 16:03 History of Present Illness: 41-year-old female patient presents to the emergency department complaining of right foot pain. Patient states that she had a scratch on her foot and some psoriasis and was told by a friend to put some [place] ointment on it. Patient states she has done this and is progressively worsened over the last 5 days. Patient denies any fever. Patient denies any decreased sensation numbness or tingling. Patient denies any history of gout. Patient denies any trauma or injury. Associated symptoms: Deny chest pain, confusion, diaphoresis, dyspnea, headache(s), malaise, nausea, rash, palpitations, syncope or vomiting Review of Systems Const: Denies: fever(s), chills, body aches, change in appetite, change in weight, fatigue, malaise or diaphoresis Eyes: Denies: change in vision, blurry vision, blind spots, photophobia, eye discomfort, eye discharge, eye redness, floaters or seeing flashes ENMT: Denies: throat pain, uvular edema, enlarged tonsils, odynophagia, hoarseness, mouth pain, swelling of lips/tongue, oral sores, bleeding gums, dental pain, dry mouth, ear or mastoid pain, ear discharge, change in hearing, tinnitus, disequilibrium, nasal discharge, nasal congestion, post nasal drip or sinus pain Card: Denies: chest pain, palpitations, irregular heart rhythm, edema, swelling of feet/ankles, lightheadedness, syncope, pre-syncope, dyspnea on exertion, orthopnea, leg pain with exertion or acrocyanosis Resp: Denies: dyspnea, productive cough, non-productive cough, wheezing, stridor, pain on inspiration, change in phlegm color, hemoptysis or chest congestion GI: Denies: abdominal pain, nausea, vomiting, hematemesis, dysphagia, diarrhea, constipation, GI cramping, change in bowel habits or rectal pain : Denies: flank pain, difficulty voiding, dysuria, urinary frequency, urinary urgency, urinary hesitancy or hematuria Musc: Reports: extremity pain and extremity swelling; Denies: neck pain, back pain, joint pain, joint swelling, joint redness, joint warmth or deformity Skin/Breast: Denies: rash, pruritus, erythema, sores, new lesions, changes in skin color or dry skin Neuro: Denies: headache(s), numbness in extremities, weakness in extremities, sensory changes, lack of coordination, difficulty walking, frequent falls, dizziness, vertigo, confusion, behavioral changes, Slurred speech present, difficulty communicating thoughts or seizure-like activity Psych: Denies: anxiety, depression, suicidal ideation or homicidal ideation Endo: Denies: polyuria, polydipsia, tired all the time, cold intolerance, excessive sweating, flushing, hot flashes or heat intolerance Juan M/Lymph: Denies: easy bruising, easy bleeding, petechiae, purpura, enlarged lymph nodes or tender lymph nodes All/Imm: Denies: urticaria, throat swelling, tongue swelling, facial swelling, acute wheezing or itchy eyes PFSH ED PFSH: Medical History Hypothyroid Major depression, recurrent Social History Smoking and tobacco status: current every day smoker Physical Exam Const: COMMON NORMALS: no acute distress, average body habitus, patient oriented x3, no limitations, healthy appearing, alert and well nourished HENMT: THROAT: no uvular edema Neck/C-Spine: COMMON NORMALS: no JVD Resp: COMMON NORMALS: normal respiratory effort, No retractions, No use of accessory muscles, clear to auscultation bilaterally and percussion normal AUSCULTATION: clear to auscultation bilaterally PERCUSSION: percussion normal Cardio: COMMON NORMALS: no JVD, regular rate and regular rhythm RATE: regular rate RHYTHM: regular rhythm Extremity: NARRATIVE EXTREMITY EXAM: Patient has notable erythema, swelling, some areas of cracked skin to the right foot. Patient is neurovascularly intact distally. Neuro: COMMON NORMALS: patient oriented x3 SENSORIUM/ORIENTATION: Yes alert Course Vital Signs: Vital signs: Vital Signs Temperature 97.8 F 11/22/21 15:59 Pulse Rate 93 11/22/21 15:59 Respiratory Rate 14 11/22/21 15:59 Blood Pressure 167/114 11/22/21 15:59 Pulse Oximetry 99 11/22/21 15:59 Oxygen Delivery Me thod 11/22/21 15:59 MDM - General Adult Medical Decision Making Patient is well-appearing nontoxic in no acute distress. 41-year-old female patient presents to the emergency department complaining of right foot pain. Patient states that she had a scratch on her foot and some psoriasis and was told by a friend to put some [place] ointment on it. Patient states she has done this and is progressively worsened over the last 5 days. Patient denies any fever. Patient denies any decreased sensation numbness or tingling. Patient denies any history of gout. Patient denies any trauma or injury. On my list of differentials include cellulitis versus gout. Patient does complain of pain that extends into her right great toe. Given the presence of open skin breaks on her foot I am going to treat her with antibiotics at this time. Patient's findings are consistent with cellulitis. Patient is neurovascular intact distally. Patient is afebrile. I have advised patient if antibiotics do not help over the next few days to follow-up with primary care physician as she may be experiencing gout. Discharge Plan Discharge Patient Disposition: Home Clinical Impression: Cellulitis Condition: Stable Prescriptions: New clindamycin HCl 300 mg capsule 300 mg PO Q12H 7 Days Qty: 14 0RF No Action amlodipine 10 mg tablet 10 mg PO DAILY Qty: 30 0RF promethazine 25 mg tablet 25 mg PO Q6H PRN (Reason: nausea and vomiting) Qty: 20 0RF promethazine 25 mg tablet 25 mg PO Q6H PRN (Reason: headache, n/v) Qty: 10 0RF diclofenac sodium 75 mg tablet,delayed release (DR/EC) 75 mg PO BID PRN (Reason: headache) Qty: 10 0RF Decadron 6 mg tablet 6 mg PO DAILY Qty: 7 0RF Augmentin 875-125 mg tablet 1 tab PO BID Qty: 14 0RF Discharge Orders: Discharge ED (Routine); Ordered 11/22/21 Ordered By: Florence Prado Referrals: Alejandro Elam MD [Primary Care Provider] - (if no improvement) Discharge Diet: Advance as tolerated Discharge Activity: Increase activity as tolerated Patient Instructions: Opioid Safety, Cellulitis Activity Restrictions/Additional Instructions: Please follow discharge instructions as provided Please return with any worsening of symptoms as discussed Please take medications as prescribed Coding Level of Care Code ED Packing Room Supervisor for Sharan Bullard
== END 2021-11-22 16:45 | disposition home or self-care (01) ==
PROVIDERS: Emergency Provider Registered Nurse; PCP Family Medicine
DX: L03.115 Cellulitis of right lower limb (principal); F17.210 Nicotine dependence, cigarettes, uncomplicated
CPT/HCPCS: 99283

== ENCOUNTER 2023-02-24 11:28 | Emergency (ER) | payer MEDICAID, SELFPAY ==
[2023-02-24 11:32] VITALS: BP 175/117; PULSE 83; RESP 16; TEMP 36.6; O2SAT 99; BMI 28.5
--- NOTE | 2023-02-24 11:36 | W.ED.URI ---
HPI - URI/Sore Throat General: Chief Complaint: Upper Respiratory Infection Stated Complaint: congested, head pain, body aches, fever Time Seen by Provider: 02/24/23 11:36 Source: patient Mode of arrival: ambulatory History of Present Illness: 42-year-old female presents emergency room with cough congestion myalgias headache for the last 3 days no vomiting low-grade diarrhea. Other family members in the home have had COVID recentlyt. MD elicited complaint: fever and cough Onset (ago): day(s) (2) Associated symptoms: Reports chills, congestion, cough, fever(s), headache(s), myalgias, nasal congestion, nausea, rhinorrhea, short of breath and sore throat; Deny abdominal pain or chest pain Treatments prior to arrival: none Review of Systems Const: Reports: fever(s) and chills ENMT: Reports: nasal congestion Card: Denies: chest pain Resp: Reports: dyspnea and non-productive cough GI: Reports: nausea; Denies: abdominal pain : Denies: dysuria, urinary frequency or urinary urgency Musc: Denies: neck pain or back pain Skin/Breast: Denies: rash Neuro: Reports: headache(s) PFSH ED PFSH: Medical History Major depression, recurrent Hypothyroid Social History Smoking and tobacco/nicotine status: current every day tobacco/nicotine user Physical Exam Const: GENERAL APPEARANCE: cooperative and comfortable ORIENTATION/CONSCIOUSNESS: Yes awake, Yes oriented to person, Yes oriented to place and Yes oriented to time HENMT: COMMON NORMALS: normocephalic, atraumatic and hearing grossly normal bilaterally HEAD & SCALP: normocephalic and atraumatic Resp: COMMON NORMALS: normal respiratory effort, No retractions, No use of accessory muscles and clear to auscultation bilaterally AUSCULTATION: clear to auscultation bilaterally Cardio: COMMON NORMALS: regular rate, regular rhythm and No murmurs present (Cardio) RATE: regular rate RHYTHM: regular rhythm GI: COMMON NORMALS: Soft to palpation and No hepatosplenomegaly present AUSCULTATION: Yes normoactive bowel sounds PALPATION: Yes Soft to palpation, No Tenderness to palpation present (GI), No Guarding due to palpation present (GI) and Yes No hepatosplenomegaly present Extremity: COMMON NORMALS: normal to inspection, capillary refill normal, no clubbing, cyanosis or edema, no calf tenderness and no pedal edema Neuro: SENSORIUM/ORIENTATION: Yes oriented to person, Yes oriented to place and Yes oriented to time Skin: COMMON NORMALS: no rashes or lesions noted GENERAL SKIN EXAM: no rashes or lesions noted Course Vital Signs: Vital signs: Vital Signs Temperature 97.8 F 02/24/23 11:32 Pulse Rate 83 02/24/23 11:32 Respiratory Rate 16 02/24/23 11:32 Blood Pressure 175/117 02/24/23 11:32 Pulse Oximetry 99 02/24/23 11:32 Oxygen Delivery Me thod Room Air 02/24/23 11:32 MDM - URI/Sore Throat Medical Decision Making Given history of known COVID positive in the home suspect the same. Her symptoms on her exam are suggestive of same as well. Discharge patient home if her COVID swab is confirmed we will recommend Paxlovid. Medical Records I reviewed the patient's medical records. Lab Data I reviewed the patient's lab results. No radiology studies performed this visit Discharge Plan Discharge Patient Disposition: Home Clinical Impression: Upper respiratory infection, viral, Suspected 2019-nCoV infection Condition: Stable Prescriptions: No Action amlodipine 10 mg tablet 10 mg PO DAILY Qty: 30 0RF promethazine 25 mg tablet 25 mg PO Q6H PRN (Reason: nausea and vomiting) Qty: 20 0RF promethazine 25 mg tablet 25 mg PO Q6H PRN (Reason: headache, n/v) Qty: 10 0RF diclofenac sodium 75 mg tablet,delayed release (DR/EC) 75 mg PO BID PRN (Reason: headache) Qty: 10 0RF Decadron 6 mg tablet 6 mg PO DAILY Qty: 7 0RF Augmentin 875-125 mg tablet 1 tab PO BID Qty: 14 0RF Discharge Orders: Discharge ED (Routine); Ordered 02/24/23 Ordered By: Ten Orona Referrals: Alejandro Elam MD [Primary Care Provider] - Discharge Diet: Usual diet Discharge Activity: Increase activity as tolerated Patient Instructions: COVID-19 (Coronavirus Disease 2019) (ED), Opioid Safety, Pain Management Activity Restrictions/Additional Instructions: [facility]. Please realize this is an emergency room and that we are providing you with a medical screening exam and this may not be complete and all inclusive of all the testing and or work up that you may need to determine your ailment or severity of your illness. It is very important that you follow up as instructed or that you return to the Emergency Department should you have concerns or if your condition changes or worsens in any way. You are seen today for upper respiratory infection. Based on your history and exam suspect that you have COVID-19. COVID swab has been collected we will contact you with results when available. If it does turn positive you would be a candidate for Paxlovid therapy. Coding Level of Care Code ED Dynamometer Tester Engine for Sharan Bullard
[2023-02-24] MEDS: acetaminophen 500 mg Tablet 1000 MG PO (11:56)
[2023-02-24 13:49] LABS: Adenovirus Not Detected (NOT DETECT); Chlamydia Pneumoniae Not Detected (NOT DETECT); Coronavirus 229E,HKU1,NL63,OC4 Not Detected (NOT DETECT); Human Metapneumovirus Not Detected (NOT DETECT); Human Rhinovirus/Enterovirus Not Detected (NOT DETECT); Influenza A Not Detected (NOT DETECT); Influenza A H1 Not Detected (NOT DETECT); Influenza A H1-2009 Not Detected (NOT DETECT); Influenza A H3 Not Detected (NOT DETECT); Influenza B Not Detected (NOT DETECT); Mycoplasma Pneumoniae Not Detected (NOT DETECT); Parainfluenza Virus Type 1 Not Detected (NOT DETECT); Parainfluenza Virus Type 2 Not Detected (NOT DETECT); Parainfluenza Virus Type 3 Not Detected (NOT DETECT); Parainfluenza Virus Type 4 Not Detected (NOT DETECT); Respiratory Syncytial Virus A Not Detected (NOT DETECT); Respiratory Syncytial Virus B Not Detected (NOT DETECT)
[2023-02-24 14:11] LABS: SARS-COV-2 Detected (NOT DETECT)
--- NOTE | 2023-02-24 14:27 | PC.NURSE ---
pts COVID test resulted at positive. This RN called to inform pt of result and inform her that [facility] her primary care provider to get tested for COVID. This RN talked to ODIN Jefferson at [facility] in [facility]. and let her know the results and the plan of care and she informed me that she believes the provider at the clinic is going to provide her with the prescription.
== END 2023-02-24 12:14 | disposition home or self-care (01) ==
PROVIDERS: Emergency Provider Family Medicine; PCP Family Medicine
DX: U07.1 COVID-19 (principal); Z72.0 Tobacco use
CPT/HCPCS: 87635; 99283